=== PATIENT | female | born 1940 | race Caucasian/White ===

== ENCOUNTER 2018-05-10 08:59 | Emergency (ER) | payer MEDICARE, OTHER, SELFPAY ==
--- NOTE | 2018-05-10 09:00 | ED.ABDPAIN ---
HPI - Abdominal Pain General Chief Complaint: Abdominal Pain Stated Complaint: 'DIVERTICULITIS' Time Seen by Provider: 05/10/18 09:00 Source: patient Mode of arrival: ambulatory Limitations: no limitations History of Present Illness HPI narrative: 77-year-old female with a history of diverticulitis and pancreatitis approximately 14 months ago here for evaluation of left-sided abdominal pain and diarrhea that started last evening. She states this started after her evening dinner. Has been constant since then. Has had multiple episodes of diarrhea. No vomiting. She states it feels very similar to her prior diverticulitis episode. Has not tried anything for it. Has an appointment scheduled with her primary doctor tomorrow for routine follow-up. Also was scheduled for a colonoscopy next week. Related Data Home Medications Medication Instructions Recorded Confirmed levothyroxine [Synthroid] 75 mcg PO SUTUTHSA #0 06/21/13 05/10/18 losartan [Cozaar] 100 mg PO DAILY #0 06/21/13 05/10/18 simvastatin 20 mg PO HS #0 06/21/13 05/10/18 aspirin 81 mg PO HS #0 09/04/17 05/10/18 felodipine 5 mg PO QDAY #0 09/04/17 05/10/18 levothyroxine [Synthroid] 0.05 mg PO MOWEFR #0 09/04/17 05/10/18 multivitamin [Multiple Vitamins] 1 tab PO QDAY #0 09/04/17 05/10/18 vitamin B complex [B 1 tab PO QDAY #0 09/04/17 05/10/18 Complex-Vitamin B12] Calcium 300mg + D3 1 tab PO DAILY 05/10/18 05/10/18 ascorbic acid (vitamin C) [Vitamin 1 tab PO DAILY 05/10/18 05/10/18 C With Lilibeth Hips] omega-3 fatty acids-fish oil [Fish 1 cap PO DAILY 05/10/18 05/10/18 Oil] Previous Rx's Medication Instructions Recorded letrozole [Femara] 2.5 mg PO QDAY #30 tab 10/16/17 amoxicillin-pot clavulanate 1 tab PO BID 10 Days #20 tab 05/10/18 Allergies Allergy/AdvReac Type Severity Reaction Status Date / Time No Known Allergies Allergy Uncoded 02/10/18 11:53 Review of Systems Constitutional Reports chills, Denies fatigue, Denies fever(s), Denies headache(s) and Denies lethargy ENT Ears, Nose, Mouth, and Throat: Denies vertigo, Denies dizziness and Denies headache(s) Cardiovascular Denies chest pain, Denies palpitations and Denies dyspnea Respiratory Denies cough and Denies dyspnea Gastrointestinal Gastrointestinal: Reports abdominal pain, Denies melena, Denies hematochezia, Reports diarrhea, Denies nausea and Denies vomiting Genitourinary Denies dysuria and Denies flank pain Musculoskeletal Denies myalgias and Denies arthralgias Integumentary/Breasts Denies rash and Denies wounds Neurologic Denies vertigo, Denies dizziness and Denies headache(s) Endocrine Denies fatigue and Denies palpitations Hematologic/Lymphatic Denies easy bleeding and Denies easy bruising Allergic/Immunologic Denies urticaria Exam Initial Vital Signs Initial Vital Signs: Vital Signs Temperature 97.3 F L 05/10/18 09:09 Pulse Rate 72 05/10/18 09:09 Respiratory Rate 18 05/10/18 09:09 Blood Pressure 136/73 H 05/10/18 09:09 Pulse Oximetry 99 05/10/18 09:09 Const General: cooperative, healthy appearing, comfortable, well developed, well groomed and No acute distress Nutritional Appearance: average body habitus Orientation: alert, awake and oriented x3 [facility] Head: normal to inspection, normocephalic and atraumatic Resp Effort & Inspection: normal respiratory effort GI Inspection: non-distended Palpation: soft, No firm and tender (Left side abdomen) Back/Spine/Pelvis Back: No CVA tenderness Skin Lesions: no lesions Rashes: no rashes Neuro General: alert, awake and oriented x3 Cognition: normal cognition Speech: speech normal Motor: muscle tone normal throughout Sensory Exam: no sensory deficits noted Extrem General: normal to inspection and capillary refill normal Psych Appearance: grossly normal and well kempt Course Orders Ordered: ED Orders 05/10/18 09:32 Urinalysis and Microscopic Stat 05/10/18 09:45 Complete Blood Count AUTO DIFF Stat Comprehensive Metabolic Panel Stat Lactate (Lactic Acid) Stat Lipase Stat Vital Signs - 8 hr 05/10/18 09:09 05/10/18 11:08 Temperature 97.3 F L Pulse Rate 72 86 Respiratory Rate 18 17 Blood Pressure 136/73 H Blood Pressure [Left Arm] 115/65 Pulse Oximetry 99 95 MDM - Abdominal Pain Medical Records Attestation: I reviewed the patient's medical records. Lab Data Attestation: I reviewed the patient's lab results. Result diagrams: 05/10/18 09:45 05/10/18 09:45 Lab Results 05/10/18 05/10/18 05/10/18 Range/Units 09:32 09:45 09:45 WBC 10.9 (4.5-11.0) X10^3/uL RBC 4.29 (4.0-5.2) X10^6/uL Hgb 13.3 (12.0-16.0) g/dL Hct 39.3 (36-46) % MCV 91.7 (80-100) fL MCH 31.0 (26-34) PG MCHC 33.8 (30-36) % RDW 13.6 (11.6-14.8) % Plt Count 183 (150-400) X10^3/uL Neut % (Auto) 84.0 H (50-75) % Lymph % (Auto) 7.9 L (25-40) % [place] % (Auto) 7.3 (3-14) % Eos % (Auto) 0.4 L (2-4) % Baso % (Auto) 0.4 (0-2) % Neut # (Auto) 9200 H (8082-8077) /uL Sodium 142 (137-145) mmol/L Potassium 3.8 (3.4-5.1) mmol/L Chloride 106 (98-107) mmol/L Carbon Dioxide 23 (22-32) mmol/L BUN 24 H (7-17) mg/dL Creatinine 0.80 (0.52-1.04) mg/dL Estimated GFR > 60.0 (>60) mL/min BUN/Creatinine Ratio 30.0 H (6-22) Glucose 102 (80-110) mg/dL Lactate (0.7-2.1) mmol/L Calcium 10.2 (8.4-10.2) mg/dL Total Bilirubin 0.7 (0.2-1.3) mg/dL AST 33 (14-36) IU/L ALT 28 (9-52) IU/L Alkaline Phosphatase 84 (38-126) U/L Total Protein 8.1 (6.3-8.2) g/dL Albumin 4.5 (3.5-5.0) g/dL Globulin 3.6 (1.7-4.1) g/dL Albumin/Globulin Ratio 1.3 (1.0-2.8) Lipase 86 (23-300) U/L Urine Color Yellow Urine Appearance Clear Urine pH 5.5 (4.5-8.0) Ur Specific [place] 1.025 (1.000-1.035) Urine Protein Negative (Negative) Urine Glucose (UA) Negative (Normal) g/dL Urine Ketones Negative (NEGATIVE) Urine Occult Blood Negative (Negative) Urine Nitrate Negative (Negative) Urine Bilirubin Negative (NEGATIVE) Urine Urobilinogen 0.2 (0.2) E.U./dL Ur Leukocyte Esterase Negative (NEGATIVE) Urine RBC None seen (0-5/HPF) Urine WBC None seen (0-5/HPF) Ur Squamous Epith Cells 0-1 /hpf Calcium Oxalate Crystal Few H (None) Urine Bacteria None seen (None) Urine Mucus 1+ H (Negative) Ur Culture Indicated? Cult not indicated Micro UA Comment Not Reportable 05/10/18 Range/Units 09:45 WBC (4.5-11.0) X10^3/uL RBC (4.0-5.2) X10^6/uL Hgb (12.0-16.0) g/dL Hct (36-46) % MCV (80-100) fL MCH (26-34) PG MCHC (30-36) % RDW (11.6-14.8) % Plt Count (150-400) X10^3/uL Neut % (Auto) (50-75) % Lymph % (Auto) (25-40) % [place] % (Auto) (3-14) % Eos % (Auto) (2-4) % Baso % (Auto) (0-2) % Neut # (Auto) (5853-2528) /uL Sodium (137-145) mmol/L Potassium (3.4-5.1) mmol/L Chloride (98-107) mmol/L Carbon Dioxide (22-32) mmol/L BUN (7-17) mg/dL Creatinine (0.52-1.04) mg/dL Estimated GFR (>60) mL/min BUN/Creatinine Ratio (6-22) Glucose (80-110) mg/dL Lactate 0.8 (0.7-2.1) mmol/L Calcium (8.4-10.2) mg/dL Total Bilirubin (0.2-1.3) mg/dL AST (14-36) IU/L ALT (9-52) IU/L Alkaline Phosphatase (38-126) U/L Total Protein (6.3-8.2) g/dL Albumin (3.5-5.0) g/dL Globulin (1.7-4.1) g/dL Albumin/Globulin Ratio (1.0-2.8) Lipase (23-300) U/L Urine Color Urine Appearance Urine pH (4.5-8.0) Ur Specific [place] (1.000-1.035) Urine Protein (Negative) Urine Glucose (UA) (Normal) g/dL Urine Ketones (NEGATIVE) Urine Occult Blood (Negative) Urine Nitrate (Negative) Urine Bilirubin (NEGATIVE) Urine Urobilinogen (0.2) E.U./dL Ur Leukocyte Esterase (NEGATIVE) Urine RBC (0-5/HPF) Urine WBC (0-5/HPF) Ur Squamous Epith Cells Calcium Oxalate Crystal (None) Urine Bacteria (None) Urine Mucus (Negative) Ur Culture Indicated? Micro UA Comment MDM Narrative Medical decision making narrative: Patient has a benign abdominal exam. Lactate unremarkable. Does not have an elevated white blood cell count. Did have a couple episodes of diarrhea here in the emergency department. Has been nonbloody. Is tolerating oral intake. Had a long discussion with the patient and her regarding her symptoms. She states that it feels just like her prior diagnosis of diverticulitis. Will hold on a CT scan for now and treat with Augmentin. She states she could not tolerate the Cipro and Flagyl. She has been on Augmentin in the past which seems to have helped her symptoms. We did discuss that without the CT scan we could be missing a potentially worse conditions such as an abscess. She expressed understanding with this we will still hold on a CT scan. She was given return precautions. She will call her surgeon to see about the colonoscopy that she has scheduled for next week. She expressed understanding and agreement with plan Discharge Plan Departure Patient Disposition: Home, Self-Care Clinical Impression: Diverticulitis Instructions: Diverticulitis Activity Restrictions/Additional Instructions: Take all of the medication as directed. Eat a bland diet like we discussed. Call your surgeon to discuss the colonoscopy that you have scheduled for next week. Call your primary care doctor for a follow-up. Return to the emergency department for any new symptoms, worsening pain, fevers, inability to tolerate oral intake or any other new or concerning symptoms Prescriptions: New amoxicillin-pot clavulanate 500-125 mg tablet 1 tab PO BID 10 Days Qty: 20 RF: 0 No Action losartan [Cozaar] 100 MG tablet 100 mg PO DAILY Qty: 0 RF: 0 levothyroxine [Synthroid] 75 MCG tablet 75 mcg PO SUTUTHSA Qty: 0 RF: 0 simvastatin 20 MG tablet 20 mg PO HS Qty: 0 RF: 0 levothyroxine [Synthroid] 50 MCG tablet 0.05 mg PO MOWEFR Qty: 0 RF: 0 multivitamin [Multiple Vitamins] 1 EACH tablet 1 tab PO QDAY Qty: 0 RF: 0 felodipine 5 MG tablet extended release 24 hr 5 mg PO QDAY Qty: 0 RF: 0 vitamin B complex [B Complex-Vitamin B12] 1 EACH tablet 1 tab PO QDAY Qty: 0 RF: 0 aspirin 81 MG tablet,delayed release (DR/EC) 81 mg PO HS Qty: 0 RF: 0 letrozole [Femara] 2.5 MG tablet 2.5 mg PO QDAY Qty: 30 RF: 4 ascorbic acid (vitamin C) [Vitamin C With Lilibeth Hips] 1,000 mg Tablet Extended Release 1 tab PO DAILY RF: 0 omega-3 fatty acids-fish oil [Fish Oil] 360-1,200 mg Capsule 1 cap PO DAILY RF: 0 Calcium 300mg + D3 1 tab PO DAILY RF: 0
[2018-05-10 09:09] VITALS: BP 136/73; PULSE 72; RESP 18; TEMP 36.3; O2SAT 99; BMI 30.3
[2018-05-10 09:53] LABS: Add Manual Diff / Slide Review NO; Basophils Percent Auto 0.4 % (0-2); Eosinophils Percent Auto 0.4 % (2-4); Hematocrit 39.3 % (36-46); Hemoglobin 13.3 g/dL (12.0-16.0); Lymphocytes Percent Auto 7.9 % (25-40); Mean Corpuscular HGB Conc 33.8 % (30-36); Mean Corpuscular Volume 91.7 fL (80-100); Monocytes Percent Auto 7.3 % (3-14); Neutrophils Absolute Auto 9200 /uL (3000-5900); Platelet Count 183 X10^3/uL (150-400); Red Blood Cell Count 4.29 X10^6/uL (4.0-5.2); Red Cell Distribution Width 13.6 % (11.6-14.8); White Blood Cell Count 10.9 X10^3/uL (4.5-11.0)
[2018-05-10 10:14] LABS: Alanine Aminotransferase 28 IU/L (9-52); Albumin 4.5 g/dL (3.5-5.0); Albumin Globulin Ratio 1.3 (1.0-2.8); Alkaline Phosphatase 84 U/L (38-126); Aspartate Aminotransferase 33 IU/L (14-36); Bilirubin Total 0.7 mg/dL (0.2-1.3); Blood Urea Nitrogen 24 mg/dL (7-17); Calcium 10.2 mg/dL (8.4-10.2); Carbon Dioxide 23 mmol/L (22-32); Chloride 106 mmol/L (98-107); Estimated Glomerular Filt Rate > 60.0 mL/min (>60); Globulin 3.6 g/dL (1.7-4.1); Glucose 102 mg/dL (80-110); Lipase 86 U/L (23-300); Potassium 3.8 mmol/L (3.4-5.1); Sodium 142 mmol/L (137-145); Total Protein 8.1 g/dL (6.3-8.2)
[2018-05-10 10:15] LABS: HEMOLYSIS 56 (0-50); Lactate (Lactic Acid) 0.8 mmol/L (0.7-2.1)
[2018-05-10 10:25] LABS: Bacteria Urine None Seen; RBC Urine None Seen (0-5/HPF); WBC Urine None Seen (0-5/HPF)
[2018-05-10 10:28] LABS: Appearance Urine UA CLEAR; Bilirubin Urine UA NEGATIVE (NEGATIVE); Color Urine UA YELLOW; Glucose Urine UA NEGATIVE (Normal); Ketones Urine UA NEGATIVE (NEGATIVE); Leukocyte Esterase Urine UA NEGATIVE (NEGATIVE); Nitrite Urine UA Negative (Negative); Occult Blood Urine UA NEGATIVE (Negative); Protein Urine UA NEGATIVE (Negative); Specific Gravity Urine UA 1.025 (1.000-1.035); Urobilinogen Urine UA 0.2 E.U./dL (0.2); pH Urine UA 5.5 (4.5-8.0)
[2018-05-10 10:40] LABS: Calcium Oxalate Crystals Urine Few; Culture Indicated Urine Cult Not Indicated; Mucus Urine 1+ (Negative); Squamous Epithelial Cell Urine 0-1 /HPF
[2018-05-10 11:08] VITALS: BP 115/65; PULSE 86; RESP 17; O2SAT 95
== END 2018-05-10 11:43 | disposition home or self-care (01) ==
PROVIDERS: Emergency Provider Emergency Medicine; Family Provider Family Medicine; PCP Family Medicine
DX: K57.92 Diverticulitis of intestine, part unspecified, without perforation or abscess without bleeding (principal)
CPT/HCPCS: 36591; 80053; 81001; 83605; 83690; 85025; 99283

== ENCOUNTER → 2018-05-18 15:38 | Outpatient (CLI) | payer MEDICARE, OTHER, SELFPAY ==
--- NOTE | 2018-05-18 15:42 | DI.RAD.S_ITS ---
PROCEDURE: XR FOOT LT MIN 3V INDICATIONS: LEFT FOOT PAIN TECHNIQUE: 3 views of the foot were acquired. COMPARISON: [facility], , FOOT 3V LEFT, 01/03/2009, 11:13. FINDINGS: Bones: Metatarsus adductus and hallux valgus. No fractures or dislocations. No suspicious bony lesions. There is moderate first metatarsophalangeal joint degeneration. Calcaneal spurring. [place] adjacent to the medial malleolus is likely sequelae of old injury. Soft tissues: No tibiotalar joint effusion. Achilles tendon appears normal. IMPRESSION: 1. 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 2. Bunion. 3. Calcaneal spurring. Dictated by: Daren Hernandez M.D. on 05/18/2018 at 17:44 Approved by: Daren Hernandez M.D. on 05/18/2018 at 17:47
== END ==
PROVIDERS: Family Provider Family Medicine; PCP Family Medicine; Visit Provider Family Medicine
DX: M18.12 Unilateral primary osteoarthritis of first carpometacarpal joint, left hand (principal); M21.612 Bunion of left foot; M77.32 Calcaneal spur, left foot; M79.672 Pain in left foot
CPT/HCPCS: 73630

== ENCOUNTER → 2018-06-30 17:09 | Outpatient (CLI) | payer MEDICARE, OTHER, SELFPAY ==
--- NOTE | 2018-06-30 17:11 | DI.RAD.S_ITS ---
PROCEDURE: XR HAND RT MIN 3V INDICATIONS: RIGHT HAND PAIN TECHNIQUE: 3 views of the hand(s) acquired. COMPARISON: [facility], , HAND 3V RIGHT, 11/23/2008, 10:52. FINDINGS: Bones: No fractures or dislocations. Carpal bones are normally aligned. No suspicious bony lesions. Degenerative changes in multiple interphalangeal joints. Subchondral cystic area in the distal right radius is stable and benign. Soft tissues: No suspicious soft tissue calcifications. IMPRESSION: No fractures. Degenerative changes in multiple interphalangeal joints. Dictated by: Anthony Lyons M.D. on 07/01/2018 at 9:29 Approved by: Anthony Lyons M.D. on 07/01/2018 at 9:32
--- NOTE | 2018-09-20 10:59 | MSW.VISIT ---
CARD PLACER Visit note - Data of Consult Primary Care Provider: Danita Armstrong MD - Consult Narrative Reason for consult: Counseling for adjustment to survivorship and marital dynamics. Narrative: Patient is a 78-year old female here to initiate counseling to address communication and relationship difficulties that she has been experiencing with her spouse. She states that after completing her active cancer treatment, that she finds herself feeling more frustrated and impatient with her , although many of her frustrations have been long-standing. CARD PLACER provided teaching re: cancer survivorship, the continued effects of anxiety/depression, and validation of the normal experience of cancer survivors to feel different in adjusting to their new normal, especially when is comes to communication and relationship dynamics with those family, friends and caregivers that have been directly involved throughout treatment. Discussed basic communication skills and tools, such as: paying attention to one's own tone, non-verbal messages, and reactions to disagreements/conflicts/aggravations she experiences in communication with her . Pt's is also 82-year's old, and is very hard of hearing. CARD PLACER shared that older people with hearing loss, without efficient hearing aid devices, can often become more irritable, depressed, and will withdraw from engaging with people in conversation due to not being able to hear them. She states that this may improve, as they had just gone to the [place] and had his hearing aids replaced. He's also described by patient as drinking several alcohol beverages per day, and will often become more belligerent as he becomes more intoxicated. Counseling involved discussing ways that patient can take care of herself when pt is intoxicated and unable to interact rationally or reasonably, including disengaging, being clear and matter of fact in stating her needs/feelings, and not reacting in antagonistic ways that exacerbate the interaction. Offered additional suggestions for processing through her experience of cancer, fears about the future, and ways to remain healthy-physically and emotionally, with self-care. Discussed how resentment can grow in a relationship when one partner has ongoing, unmet expectations of the other partner, and encouraged her to think more about this: what is she willing to accept, what's within her control and not in her control, focus on changing her own responses and emotional reactions to begin with-as opposed to always feeling disapointed in his reponses and reactions to her that make her feel so frustrated. She expressed that they are both elderly, and that she has no intention of her spouse, however wants improvement for their relationship. They have grown children who are very supportive, however patient does not want to burden (her daughter) with ongoing complaints about their father. CC: Danita Armstrong MD Patient reports pain?: No - Code Status Resuscitation Status: Full Code - Social History Smoking Status: Never smoker alcohol intake: never (On special occasions, sometimes.) substance use type: does not use housing: house household members: spouse service: Yes (Spouse is retired [employer] [employer] current occupational status: retired education level: high school - Psychological Status Stressors: Interpersonal, Health Depression-related: Depressed mood: Present, Loss of interest: Absent, Fatigue: Present, Concentration/focus: Absent, Insomnia: Absent, Hypersomnia: Absent, Appetite changes: Absent, Feel guilt/worthlesness: Absent, Suicidal ideation: Absent, Psychomotor agitation: Absent, Psychomotor retardation: Absent - Mental Status Exam Orientation:: Time, Place and Person Appearance:: Well-groomed Speech:: Normal rate/volume/ari Movement:: Agitated Mood:: Anxious Affect:: Congruent with mood, Sad Thought Process:: Normal Thought Content:: Normal Suicide Risk Degree: Low Home Medications: Home Medications Medication Instructions Recorded Confirmed Type levothyroxine [Synthroid] 75 mcg PO SUTUTHSA #0 06/21/13 09/07/18 History losartan [Cozaar] 100 mg PO DAILY #0 06/21/13 09/07/18 History simvastatin 20 mg PO HS #0 06/21/13 09/07/18 History aspirin 81 mg PO HS #0 09/04/17 09/07/18 History felodipine 5 mg PO QDAY #0 09/04/17 09/07/18 History levothyroxine [Synthroid] 0.05 mg PO MOWEFR #0 09/04/17 09/07/18 History multivitamin [Multiple Vitamins] 1 tab PO QDAY #0 09/04/17 09/07/18 History vitamin B complex [B 1 tab PO QDAY #0 09/04/17 09/07/18 History Complex-Vitamin B12] letrozole [Femara] 2.5 mg PO QDAY #30 tab 10/16/17 09/07/18 Rx Calcium 300mg + D3 1 tab PO DAILY 05/10/18 09/07/18 History ascorbic acid (vitamin C) [Vitamin 1 tab PO DAILY 05/10/18 09/07/18 History C With Lilibeth Hips] omega-3 fatty acids-fish oil [Fish 1,200 mg PO DAILY 05/10/18 09/07/18 History Oil] meloxicam 7.5 mg PO PRN PRN 09/07/18 09/07/18 History trazodone 100 mg PO BEDTIME 09/07/18 09/07/18 History Allergies/Adverse Reactions: Allergies Allergy/AdvReac Type Severity Reaction Status Date / Time metronidazole [From Flagyl] Allergy Severe Diarrhea Verified 07/08/18 08:02
== END ==
PROVIDERS: Family Provider Family Medicine; PCP Family Medicine; Visit Provider Family Medicine
DX: M79.641 Pain in right hand (principal); M19.041 Primary osteoarthritis, right hand
CPT/HCPCS: 73130

== ENCOUNTER 2018-07-08 07:40 | Day surgery (SDC) | payer MEDICARE, OTHER, SELFPAY ==
[2018-07-08] VITALS (7 sets, daily range): BP systolic 99–117; BP diastolic 56–70; PULSE 62–83; RESP 7–16; TEMP 35.9–36.5; O2SAT 94–97; BMI 29.2
[2018-07-08] MEDS: SODIUM CHLORIDE 0.9% 1,000 ML 21 ML IV (08:53)
--- NOTE | 2018-07-08 09:30 | SUR.OPER ---
DROWSY BUT RESPONSIVE TO TACTILE STIMULATION
[2018-07-08] MEDS: MIDAZOLAM 5 MG/5 ML VIAL IV (09:32)
[2018-07-08] MEDS: fentaNYL 250 MCG/5 ML INJ IV (09:33)
--- NOTE | 2018-07-08 09:48 | SUR.OPER ---
MULTIPLE POSITIONING FROM LEFT TO RIGHT SIDES
--- NOTE | 2018-07-08 09:57 | PM.HP.1 ---
History of Present Illness Date Patient Seen: 07/08/18 Time Patient Seen: 09:58 Chief complaint: [id number] Narrative: Very pleasant 77-year-old lady who is well known to me from prior visits. She has had multiple episodes of diverticulitis and was seen in our emergency room in May for an acute episode. She presents today for colonoscopy. She denies any abdominal pain currently. She just returned from a 2 week cruise and reports it went fairly well without much trouble with her bowels. Patient History Family & Social History Family History: Reviewed 07/08/18 by Ayana Amezcua MD Social History: household members spouse Meds Home Medications Medication Instructions Recorded Confirmed Type levothyroxine [Synthroid] 75 mcg PO SUTUTHSA #0 06/21/13 07/08/18 History losartan [Cozaar] 100 mg PO DAILY #0 06/21/13 07/08/18 History simvastatin 20 mg PO HS #0 06/21/13 07/08/18 History aspirin 81 mg PO HS #0 09/04/17 07/08/18 History felodipine 5 mg PO QDAY #0 09/04/17 07/08/18 History levothyroxine [Synthroid] 0.05 mg PO MOWEFR #0 09/04/17 07/08/18 History multivitamin [Multiple Vitamins] 1 tab PO QDAY #0 09/04/17 07/08/18 History vitamin B complex [B 1 tab PO QDAY #0 09/04/17 07/08/18 History Complex-Vitamin B12] letrozole [Femara] 2.5 mg PO QDAY #30 tab 10/16/17 07/08/18 Rx Calcium 300mg + D3 1 tab PO DAILY 05/10/18 07/08/18 History ascorbic acid (vitamin C) [Vitamin 1 tab PO DAILY 05/10/18 07/08/18 History C With Lilibeth Hips] omega-3 fatty acids-fish oil [Fish 1,200 mg PO DAILY 05/10/18 07/08/18 History Oil] Allergies Allergy/AdvReac Type Severity Reaction Status Date / Time metronidazole [From Flagyl] Allergy Severe Diarrhea Verified 07/08/18 08:02 Review of Systems Review of Systems All systems reviewed & are unremarkable except as noted in HPI and below Exam Vital Signs (past 8 hours): - 07/08/18 08:22 Temperature 97.1 F L Pulse Rate 70 Respiratory Rate 15 Blood Pressure 108/69 Pulse Oximetry 94 Oxygen Delivery Method Room Air Narrative Exam Narrative: Very pleasant lady who appears younger than her stated age HEENT: Normocephalic and atraumatic, pupils equal round reactive to light accommodation with anicteric sclera Lungs: Clear bilaterally Heart: Regular rate and rhythm Abdomen: Soft, well-healed midline incision, nontender to palpation, active bowel sounds Extremities: Warm and well perfused without edema Assessment & Plan Plan: Assessment/Plan Narrative: Pleasant 77-year-old lady with a history of multiple episodes diverticulitis but all successfully treated in the outpatient setting. We discussed the risks and benefits of colonoscopy and the patient expressed a desire to have the procedure..
--- NOTE | 2018-07-08 09:59 | PM.OP.1 ---
Operative Date/Time/Diagnoses Date of procedure: 07/08/18 Time of procedure: 10:00 Pre-op diagnosis: History of diverticulitis Screening Post-op diagnosis: same Procedure & Clinicians Procedure: Colonoscopy to the cecum Same procedure as scheduled: Yes Indications: More than 5 years since last colonoscopy Surgeon: Ayana Amezcua Click Yes if Unassisted: Yes Anesthesia Type: Sedation (Versed 8 mg; fentanyl 175 mcg) Operative Notes Findings: 1. Adequate prep 2. Severe and extensive diverticulosis with multiple false passages and large and small tics. The area most severely affected extends from 30-60 cm. No evidence of acute inflammation today 3. No polyps or mass lesions 4. No AV malformations 5. Essentially normal mucosa except in the segment referenced above 6. Grade 2 internal hemorrhoids Closure Type: not applicable Specimen(s): none sent Blood products transfused: none Procedure in detail: After obtaining informed consent, the patient was brought to the GI suite and placed in the left lateral decubitus position on the examination table. After placement of appropriate monitors, the patient was given incremental doses of Versed and Fentanyl until an appropriate level of sedation was achieved. A time out was held per SCOAP protocol. A digital rectal examination was performed and did not reveal any masses or obstructing lesions. The colonoscope was gently passed into the patient's anus and the entire colon navigated to the level of the cecum with significant difficulty. The patient has severe diverticulosis and a fibrotic colon from about 30 to about 60 cm. Multiple changes of position or required to navigate this segment. Once we repassed this area, the rest of the colon was relatively normal and relatively spared of diverticulosis. Once in the cecum, the scope was withdrawn being sure to go before and beyond all mucosal folds and prominences and get an excellent examination. The findings are noted above. At the level of the rectal vault, the scope was retroflexed and the internal anal canal was examined. The scope was straightened and air aspirated from the colon. The instrument was removed from the patient's body and the procedure was concluded. The patient was allowed to awaken from sedation without difficulty and taken to the post-anesthesia care unit in good condition. Total sedation time 35 min Total withdrawal time 9 min Complications: none Condition: stable Disposition: PACU Plan for aftercare: 1. Discharge to home 2. I do not recommend any additional screening studies.
== END 2018-07-08 10:45 | disposition home or self-care (01) ==
PROVIDERS: PCP Family Medicine; Visit Provider Surgery
PROC: 0DJD8ZZ Inspection of Lower Intestinal Tract, Via Natural or Artificial Opening Endoscopic (ICD-10-PCS; CPT 45378; principal; 2018-07-08 08:45)
DX: K57.30 Diverticulosis of large intestine without perforation or abscess without bleeding (principal); Z87.19 Personal history of other diseases of the digestive system; K64.1 Second degree hemorrhoids
CPT/HCPCS: 45378; 99152; 99153; J2250; J3010

== ENCOUNTER → 2018-07-12 09:49 | Outpatient (CLI) | payer MEDICARE, OTHER, SELFPAY ==
[2018-07-12 10:17] LABS: Add Manual Diff / Slide Review NO; Basophils Percent Auto 0.8 % (0-2); Eosinophils Percent Auto 0.8 % (2-4); Hematocrit 39.2 % (36-46); Hemoglobin 13.3 g/dL (12.0-16.0); Lymphocytes Percent Auto 15.2 % (25-40); Mean Corpuscular HGB Conc 33.9 % (30-36); Mean Corpuscular Hemoglobin 30.9 PG (26-34); Mean Corpuscular Volume 91.2 fL (80-100); Monocytes Percent Auto 10.2 % (3-14); Neutrophils Absolute Auto 5800 /uL (3000-5900); Platelet Count 199 X10^3/uL (150-400); Red Blood Cell Count 4.29 X10^6/uL (4.0-5.2); Red Cell Distribution Width 13.8 % (11.6-14.8)
[2018-07-12 10:28] LABS: Alanine Aminotransferase 28 IU/L (9-52); Albumin 4.5 g/dL (3.5-5.0); Albumin Globulin Ratio 1.4 (1.0-2.8); Alkaline Phosphatase 69 U/L (38-126); Aspartate Aminotransferase 27 IU/L (14-36); BUN Creatinine Ratio 27.8 (6-22); Bilirubin Total 0.8 mg/dL (0.2-1.3); Blood Urea Nitrogen 25 mg/dL (7-17); Calcium 10.2 mg/dL (8.4-10.2); Carbon Dioxide 27 mmol/L (22-32); Chloride 104 mmol/L (98-107); Estimated Glomerular Filt Rate > 60.0 mL/min (>60); Globulin 3.2 g/dL (1.7-4.1); Glucose 100 mg/dL (80-110); HEMOLYSIS < 15 (0-50); Potassium 4.4 mmol/L (3.4-5.1); Sodium 143 mmol/L (137-145); Total Protein 7.7 g/dL (6.3-8.2)
== END ==
PROVIDERS: PCP Family Medicine; Visit Provider Nurse Practitioner Gerontology
DX: D05.11 Intraductal carcinoma in situ of right breast (principal)
CPT/HCPCS: 36415; 80053; 85025

== ENCOUNTER → 2018-07-14 11:42 | Outpatient (CLI) | payer MEDICARE, OTHER, SELFPAY ==
--- NOTE | 2018-07-14 | DI.MRI.S_ITS ---
PROCEDURE: MR KNEE RT WO CON INDICATIONS: PAIN IN RIGHT KNEE TECHNIQUE: Noncontrast sagittal PD fast spin echo and T2 fast spin echo with fat saturation, sagittal 3-D FLASH with fat saturation; coronal T1 spin echo and PD fast spin echo with fat saturation, and axial PD fast spin echo with fat saturation through the knee. COMPARISON: [facility], CR, XR KNEE ARTHRITIC SERIES BI, 05/07/2018, 15:45. FINDINGS: Image quality: Excellent. Menisci: Medial extrusion of the medial meniscus. Amorphous high signal intensity within the anterior and posterior horns medial meniscus is present demonstrate superior and inferior articular surface extension, indicating degenerative tearing. Radial tearing of the free edge of the lateral meniscal body and posterior horn. Amorphous high signal intensity within the anterior horn lateral meniscus demonstrating superior and inferior articular surface extension, indicating degenerative tearing. Cruciate ligaments: Posterior cruciate ligament demonstrates moderate internal T2 signal lesion, consistent with partial thickness tearing or full-thickness tearing of the anterior cruciate ligament is present. Medial structures: The medial collateral ligament appears intact but demonstrates mild surrounding T2 signal elevation.. Visualized portions of the pes anserinus tendons appear normal. Moderate medial bursal fluid. Lateral structures: The lateral collateral ligament demonstrates a small focus of T2 signal elevation at its femoral insertion site. The long and short heads of the biceps femoris tendon appear intact. The popliteus tendon appears normal. Iliotibial band appears normal. Anterior structures: The quadriceps and patellar tendons appear intact. Patellar alignment is normal. No femoral trochlear dysplasia or ventral trochlear prominence. No edema in the infrapatellar fat pad. Bones and cartilage: No bone marrow contusions or fractures. Multiple intraosseous ganglia within the central tibial plateau. Mild ill-defined T2 signal elevation within the weightbearing aspects of the medial femoral condyle and medial tibial plateau. Severe tricompartmental periarticular osteophyte formation. Mild articular cartilage loss overlies the lateral patellar facet. Severe articular cartilage loss overlies the weightbearing aspects of the medial femoral condyle and medial tibial plateau. Moderate articular cartilage loss overlies the weightbearing aspects of the lateral femoral condyle lateral tibial plateau. Joint space: There is a small knee joint effusion and a small Gonzales's cyst. Normal appearing synovial plicae are incidentally noted. IMPRESSION: 1. Full-thickness tearing of the anterior crucial ligament. Partial-thickness tearing of the posterior crucial ligament. 2. MCL strain. 3. Partial-thickness lateral collateral ligament tear. 4. Knee joint effusion and Gonzales's cyst. 5. Medial bursitis. 6. Medial and lateral meniscal tearing. Dictated by: Viv Echols M.D. on 07/14/2018 at 13:39 Approved by: Viv Echols M.D. on 07/14/2018 at 13:44
== END ==
PROVIDERS: PCP Family Medicine; Visit Provider Orthopaedic Surgery
DX: M25.561 Pain in right knee (principal); S83.281A Other tear of lateral meniscus, current injury, right knee, initial encounter; S83.241A Other tear of medial meniscus, current injury, right knee, initial encounter; S83.511A Sprain of anterior cruciate ligament of right knee, initial encounter; S83.521A Sprain of posterior cruciate ligament of right knee, initial encounter; S83.411A Sprain of medial collateral ligament of right knee, initial encounter; S83.421A Sprain of lateral collateral ligament of right knee, initial encounter; M71.21 Synovial cyst of popliteal space [Baker], right knee
CPT/HCPCS: 73721

== ENCOUNTER 2018-07-16 11:26 | Oncology outpatient (ONC) | payer MEDICARE, OTHER, SELFPAY ==
[2018-07-16 12:04] VITALS: BP 136/75; PULSE 72; RESP 16; TEMP 36.1; O2SAT 96
--- NOTE | 2018-07-16 12:16 | P.PNONC_ITS ---
PN -Subjective Interval history: THE INTERIM EVENTS Patient was started on adjuvant letrozole in December of 2017. Patient overall has tolerated the anastrozole very well. He denies any hot flashes, denies any night sweats, denies any mood swing. He denies any shortness of breath or chest pain. Denies any abdominal pain diarrhea or constipation. Denies any joint pain at this moment. ONCOLOGICAL HISTORY Screening mammography on July 08 2017: calcification at 1 o'clock and a mass at 7 o'clock posterior depth. Additional imaging on Jul 22, 2017: 7 mm oval mass in the right breast at 8 o' clock and clustered heterogeneous calcifications at 1 o'clock anterior depth. Ultrasound on Jul 22, 2017: showed the 7 mm cyst was benign and the clustered calcifications at 1 o'clock required biopsy. Ultrasound guided core biopsies on August 04 2017 showed a high grade DCIS, solid, and cribriform pattern in 3 cores with a greatest length of 11 mm. ER + , 95% MRI on August 24, 2017 showed no additional lesions or adenopathy and was consistent with prior biopsy. Pathologic stage:09/23/17: Primary tumor: pTis(DCIS), Regional lymph nodes: pNX She has completed radiation and now agrees to start letrozole. She has a history of VANDANA BSO followed by 15 years of hormone replacement therapy - Additional ROS All systems PM: reviewed and no additional remarkable complaints except as stated Home Medications and Allergies Home Medications Medication Instructions Recorded Confirmed Type levothyroxine [Synthroid] 75 mcg PO SUTUTHSA #0 06/21/13 07/08/18 History losartan [Cozaar] 100 mg PO DAILY #0 06/21/13 07/08/18 History simvastatin 20 mg PO HS #0 06/21/13 07/08/18 History aspirin 81 mg PO HS #0 09/04/17 07/08/18 History felodipine 5 mg PO QDAY #0 09/04/17 07/08/18 History levothyroxine [Synthroid] 0.05 mg PO MOWEFR #0 09/04/17 07/08/18 History multivitamin [Multiple Vitamins] 1 tab PO QDAY #0 09/04/17 07/08/18 History vitamin B complex [B 1 tab PO QDAY #0 09/04/17 07/08/18 History Complex-Vitamin B12] letrozole [Femara] 2.5 mg PO QDAY #30 tab 10/16/17 07/08/18 Rx Calcium 300mg + D3 1 tab PO DAILY 05/10/18 07/08/18 History ascorbic acid (vitamin C) [Vitamin 1 tab PO DAILY 05/10/18 07/08/18 History C With Lilibeth Hips] omega-3 fatty acids-fish oil [Fish 1,200 mg PO DAILY 05/10/18 07/08/18 History Oil] Allergies Allergy/AdvReac Type Severity Reaction Status Date / Time metronidazole [From Flagyl] Allergy Severe Diarrhea Verified 07/08/18 08:02 Exam Vital signs: Temperature 97.0?, heart rate 72, respiratory rate 16, blood pressure 136/75, saturation 96% room air, weight 143.1 lb. ECOG 1. - Constitutional positive no acute distress, positive cooperative - Routine HEENT Exam Head: Present: normocephalic, atraumatic Eye: Present: EOMI, PERRL, normal accommodation. Absent: conjunctival icterus ENT: Present: mucous membranes moist - Routine Neck Exam Present: supple. Absent: lymphadenopathy, thyromegaly - Routine Respiratory Exam Present: Clear to auscultation bilaterally. Absent: wheezes - Routine Cardiovascular Exam Present: RRR, S1, S2. Absent: murmur, gallop, rubs - Routine Abdominal Exam Present: soft, normoactive bowel sounds. Absent: tenderness, distended, organomegaly, mass, hernia - Routine Extremities Exam Present: edema - Routine Neurological Exam Present: alert, oriented X3, CN II-XII intact, normal speech. Absent: sensory deficit, motor deficit - Routine Psychiatric Exam Present: normal affect, normal thought process, cooperative, good insight, good judgment Results - Labs Reviewed. Assessment and Plan (1) Ductal carcinoma in situ (DCIS) of right breast Current visit: Yes She is now taking letrozole 2.5 mg once a day and has tolerated very well. I will continue the treatment without any changes. I did talk with her about the possible side effects including hot flashes and osteoporosis. I encouraged her also continue to take calcium and vitamin-D [id number]. I especially told her that should be 2 pills once day. (2) Osteopenia Current visit: Yes Status: Chronic I will recheck a DEXA scan in November of 2018. And I will see the patient after the DEXA scan.
== END 2018-07-17 12:00 ==
LOC: ONC 11:28
PROVIDERS: PCP Family Medicine; Visit Provider Internal Medicine Hematology & Oncology
DX: D05.11 Intraductal carcinoma in situ of right breast (principal); M85.80 Other specified disorders of bone density and structure, unspecified site
CPT/HCPCS: 99214

== ENCOUNTER → 2018-07-21 12:29 | Outpatient (CLI) | payer MEDICARE, OTHER, SELFPAY ==
--- NOTE | 2018-07-21 | DI.MG.S_ITS ---
BILATERAL DIGITAL SCREENING MAMMOGRAM 3D/2D WITH CAD POST LUMPECTOMY: 07/21/2018 CLINICAL: Routine screening. Personal history of right breast cancer. Comparison is made to exams dated: 03/04/2018 mammogram, 08/24/2017 breast MRI, 07/08/2017 mammogram, and 07/01/2016 mammogram - [facility]. The tissue of both breasts is heterogeneously dense. This may lower the sensitivity of mammography. Current study was also evaluated with a Computer Aided Detection (CAD) system. There is postsurgical scarring with overlying linear scar markers in the upper right breast. Diffuse upper left breast calcifications appear slightly increased from prior exam. No significant masses, calcifications, or other findings are seen in either breast. IMPRESSION: INCOMPLETE: NEEDS ADDITIONAL IMAGING EVALUATION Diffuse upper left breast calcifications appear slightly increased from prior exam. Additional views with magnification views recommended. This exam was interpreted at Station ID: [id number]. NOTE: For mammograms, a report in lay terms will be sent to the patient. Approximately 15% of breast malignancies will not be visualized mammographically. In the management of a palpable breast mass, a negative mammogram must not discourage biopsy of a clinically suspicious lesion. Electronically Signed By: Pete Chahal M.D. ecl/:07/22/2018 07:16:57 copy to: Ayana Amezcua copy to: ALEX LARA copy to: Junseng. Prabhu ASHTON, [facility] letter sent: Additional Imaging Needed ACR BI-RADS Category 0: Incomplete 3340F
--- NOTE | 2018-07-27 14:21 | PC.NURSE ---
Pt called today stating that on her 07/[address] Pelletier, he indicated he would send an Rx to her pharmacy to refill her Letrozole. Per Escript, they never received any request and she is about to run out. After reviewing his notes, he did state that he wanted her to continue her letrozole at the prescribed dose so I called in a 90 day supply for her. Copy of this note will be given to Dr Pelletier for review.
== END ==
PROVIDERS: PCP Family Medicine; Visit Provider Family Medicine
DX: Z12.31 Encounter for screening mammogram for malignant neoplasm of breast (principal); Z85.3 Personal history of malignant neoplasm of breast
CPT/HCPCS: 77063; 77067

== ENCOUNTER → 2018-08-23 10:28 | Outpatient (CLI) | payer MEDICARE, OTHER, SELFPAY ==
--- NOTE | 2018-08-23 | DI.MG.S_ITS ---
UNILATERAL LEFT DIGITAL DIAGNOSTIC MAMMOGRAM 3D/2D WITH ADDITIONAL VIEWS: 08/23/2018 CLINICAL: Additional evaluation requested from prior study. Personal history of breast cancer. Comparison is made to exams dated: 07/21/2018 mammogram, 03/04/2018 mammogram, 08/24/2017 breast MRI, and 07/08/2017 mammogram - [facility]. The tissue of left breast is heterogeneously dense. This may lower the sensitivity of mammography. There are a diffuse calcifications in the left breast at 1 o'clock posterior depth. These are not significantly changed. No other significant masses or calcifications are seen in the breast. IMPRESSION: PROBABLY BENIGN The diffuse calcifications in the left breast are probably benign. A follow-up mammogram in 6 months is recommended to demonstrate stability. This exam was interpreted at Station ID: [id number]. NOTE: For mammograms, a report in lay terms will be sent to the patient. Approximately 15% of breast malignancies will not be visualized mammographically. In the management of a palpable breast mass, a negative mammogram must not discourage biopsy of a clinically suspicious lesion. Electronically Signed By: Vita Rojas M.D. lk/:08/23/2018 11:05:35 copy to: Ayana Amezcua copy to: ALEX LARA copy to: Junseng. Prabhu ASHTON, [facility] letter sent: Followup Recommended ACR BI-RADS Category 3: Probably benign [id number]
== END ==
PROVIDERS: PCP Family Medicine; Visit Provider Family Medicine
DX: R92.1 Mammographic calcification found on diagnostic imaging of breast (principal); Z85.3 Personal history of malignant neoplasm of breast
CPT/HCPCS: 77065; G0279

== ENCOUNTER 2018-11-16 11:26 | Day surgery (SDC) | payer MEDICARE, OTHER, SELFPAY ==
[2018-11-04 09:00] VITALS: BMI 29.5
[2018-11-16] VITALS (12 sets, daily range): BP systolic 116–158; BP diastolic 52–85; PULSE 22–74; RESP 11–95; TEMP 36.1–37.2; O2SAT 92–98; BMI 29.5
--- NOTE | 2018-11-16 06:00 | DI.RAD.S_ITS ---
PROCEDURE: XR KNEE RT 1TO2V INDICATIONS: prosthesis placement TECHNIQUE: 2 view(s) of the knee acquired. COMPARISON: [facility], , KNEE 3V RIGHT, 08/19/2014, 11:33. FINDINGS: Bones: Patient is status post knee joint arthroplasty. Hardware components are in expected positions. Visualized bony structures are intact. Soft tissues: Overlying postoperative changes are noted. IMPRESSION: Normal alignment after right total knee arthroplasty with a surgical drain overlying the operative bed. Dictated by: Alex Echevarria M.D. on 11/16/2018 at 16:31 Approved by: Alex Echevarria M.D. on 11/16/2018 at 16:31
[2018-11-16] MEDS: LACTATED RINGERS 1,000 ML 42 ML IV (12:10)
[2018-11-16] MEDS: VANCOMYCIN 1,000 MG/200 ML FROZ.PIGGY 200 MG IV (12:31)
[2018-11-16] MEDS: ACETAMINOPHEN 325 MG TABLET 975 MG PO ×2 (12:33→21:16)
[2018-11-16] MEDS: CELECOXIB 200 MG CAPSULE PO (12:33)
[2018-11-16] MEDS: PREGABALIN 75 MG CAPSULE PO (12:33)
--- NOTE | 2018-11-16 13:18 | PM.PREOP ---
Pre-operative Note Interval Note History & Physical reviewed/Exam performed by Physician: Yes Changes to H&P: Yes
--- NOTE | 2018-11-16 13:18 | PM.OP.1 ---
Operative Date/Time/Diagnoses Date of procedure: 11/16/18 Time of procedure: 13:18 Pre-op diagnosis: right knee OA Post-op diagnosis: same Procedure & Clinicians Procedure: right total knee arthroplasty Same procedure as scheduled: Yes Indications: The patient has had progressively worsening right knee pain with radiographic changes consistent with arthritis. Non-operative management has failed and the patient has requested total knee replacement. The risks, benefits and alternatives to surgery were discussed with the patient prior to proceeding. Risks discussed included, but were not limited to, failure to relieve pain, stiffness, infection, nerve damage, deep venous thrombosis, pulmonary embolism, stroke, coma, heart attack, permanent paralysis and , as well as the potential need for eventual revision of the prosthetic. Surgeon: Jeannette Carrion Supervisor Inventory Merchandising: Angelita Simon Anesthesia Type: General and Spinal Operative Notes Findings: Severe right knee osteoarthritis, acceptable overall alignment, good balance Closure Type: primary Specimen(s): none sent Implants & Drains: Carrion and Nephchristina Burgos BCS2 4 femur, +10 poly, 2 tibia, 32 by 7.5mm patella Applied: drain(s) Estimated Blood Loss (mL): 250 Blood products transfused: none Tourniquet time (min): 74 Procedure in detail: The patient was seen in the pre-operative area, where the patient identified the right knee as the operative site and this was marked with my initials. The patient received pre-operative antibiotics, and was taken to the operating room and placed on the operative table in the supine position. After satisfactory anesthesia, a real time operator out was performed. The right leg was encircled with a tourniquet about the proximal thigh, and the leg was prepared from the toes to the tourniquet with ChloroPrep in the usual fashion and draped through sterile drapes. The leg was elevated and exsanguinated with Eschmark bandage and the tourniquet inflated to [250] mmHg pressure. The knee was approached through an approximately 18 cm incision centered over the patella and carried into the knee through a medial parapatellar arthrotomy. A portion of the medial and lateral meniscus was resected. Soft tissue was carefully mobilized around the patella the patella was measured with a caliper. Bone was resected from the patella and the patellar height was reconstituted with up an appropriate sized patellar component. A cover was then placed on the patella. A small amount of additional medial and lateral meniscus was resected. The visionare guide fit well to the distal femur. It looked like an appropriate distal femoral cut and the cut was made without difficulty. The rotation was assessed and the appropriate size femoral guide was placed on the distal femur and finishing cuts were made. There is no evidence of notching. The anterior, posterior and chamfer cuts were then made. The posterior osteophytes and soft tissues were then removed. The posterior capsule was injected with part of a mixture of 60 ml 0.25% Marcaine mixed with 20 ml Exparel for post operative pain control. The remainder of this mixture was injected into the capsule and subcutaneous tissues during cement curing. The tibia was prepared and the visionaire guide fit well to the distal tibia. The rotation was assessed. The patient was placed in extension residual medial and lateral meniscus as well as any residual bone was carefully resected. [No] additional tibia was resected. Hemostasis was achieved especially posteriorly. Additional local was injected into the posterior capsule. The extension gap was assessed and additional releases for gap balancing were performed as necessary. It was checked with the gap filter assembler. The femoral component was trial was placed and the notch was finished. Trial tibial and femoral components were then placed and the knee placed through a range of motion. Range of motion was [0-130], with good stability throughout the range. The trials were then removed, and the tibia was finished. The bone was prepared with pulsatile lavage, and dried with a sponge. Cement was applied and the final prosthetics placed. Excess cement was removed during and after cement curing. A brief Betadine soak was performed. After confirming there was no extruded cement posteriorly, the final tibial insert was placed. The knee was copiously irrigated and the tourniquet deflated. Hemostasis was obtained with the Bovie. A drain was placed and brought out superolaterally. The capsule was closed with interrupted suture. The subcutaneous layer was closed with barbed sutures, and the skin with a running 3-0 V-Lock suture and Surgical glue. An Aquacel Ag dressing was applied and the patient was taken to recovery having tolerated the procedure well. Complications: none Condition: stable Disposition: Acute Care Plan for aftercare: The patient will be maintained on a standard total knee replacement protocol with weight bearing as tolerated. The patient will receive aspirin and sequential compression devices for DVT prophylaxis. The patient will be discharged home when safe for the home environment.
[2018-11-16] MEDS: CEFAZOLIN 2 GM/100 ML FROZ.PIGGY IV ×2 (13:35→21:21)
--- NOTE | 2018-11-16 13:53 | SUR.PREOP ---
Block start time 1320. Monitoring initiated and maintained throughout procedure. Oxygen and medications given per anesthesiologist instructions. Patient remained stable throughout procedure, no adverse reactions noted. Block end time 1330.
--- NOTE | 2018-11-16 14:04 | SUR.OPER ---
Supine on padded OR bed. Pillow under head, arms secured on padded armboards <90 degree abduction. Safety belt across torso. Non-operative leg secured with tape over blanket over lower leg. Operative leg secured in DeMayo/Jesse positioner. Foam padded brace at thigh of operative leg.
[2018-11-16] MEDS: BUPIVACAINE 0.25% W/ EPI VIAL 50 ML INJ (14:10)
[2018-11-16] MEDS: BUPIVACAINE LIPOSOME 266 MG/20 ML VIAL INJ (14:10)
[2018-11-16] MEDS: POVIDONE-IODINE 15 ML, SODIUM CHLORIDE 0.9% 250 ML TOP (14:11)
--- NOTE | 2018-11-16 14:14 | PM.PROC.1 ---
Procedures Date/Time Date of procedure: 11/16/18 Time of procedure: 13:16 General Procedure description: Ultrasound guided adductor canal nerve block for post op pain control after right total knee arthroplasty by Dr. Carrion. Risk and benefits of procedure discussed with patient. ASA monitoring applied to patient. O2 given via nasal cannula. 1 mg Versed and 25 mcg fentanyl given for procedural sedation. Skin site was prepped with chlorhexidine and allowed to fully dry. Sterile gloves, mask, hat and probe cover were used to maintain sterility. 2% lidocaine and 30ga needle was used to make a small skin wheal at needle insertion site. Under ultrasound guidance, a 21ga 100mm Pajunk needle was directed into the adductor canal near femoral artery and saphenous nerve at the level of mid thigh. Patient reported no parasthesias. After negative aspiration, 20 mL 0.5% ropivicaine and 10mg dexamethasone were injected around saphenous nerve. Patient tolerated procedure well.
--- NOTE | 2018-11-16 15:52 | SUR.PHASEI ---
care transferred to Jann Vega report given.
--- NOTE | 2018-11-16 18:18 | PC.NURSE ---
Addendum entered by Kat Higgins R.N. 11/16/18 22:08: Pt assisted to BR. w/o incidence. Denies discomfort. IVF continue as per orders. Call light w/in reach, bed alarm on for pt safety. Stable post op course, Possible D/C in am. Continue w/plan of care. Original Note: Pt arrived from PACU @ 1625. Alert/awake. Denies discomfort at this time. Dsg to right knee CDI, Hemavac intact/patent. Unclamped at 1745 Call light w/in reach
[2018-11-16] MEDS: LACTATED RINGERS 1,000 ML 125 ML IV (18:24)
[2018-11-16] MEDS: ASPIRIN EC 81 MG TABLET PO (21:17)
[2018-11-16] MEDS: DOCUSATE 100 MG CAPSULE PO (21:18)
[2018-11-16] MEDS: SIMVASTATIN 20 MG TABLET PO (21:19)
[2018-11-17 00:11] VITALS: BP 133/75; PULSE 69; RESP 18; TEMP 36.4; O2SAT 95
[2018-11-17] MEDS: LACTATED RINGERS 1,000 ML 125 ML IV (03:25)
[2018-11-17 04:37] VITALS: BP 150/73; PULSE 71; RESP 16; TEMP 36.6; O2SAT 96
[2018-11-17] MEDS: CEFAZOLIN 2 GM/100 ML FROZ.PIGGY IV (06:13)
[2018-11-17] MEDS: LEVOTHYROXINE 50 MCG TABLET PO (06:13)
--- NOTE | 2018-11-17 06:54 | PC.NURSE ---
Patient is doing very well. Reports having no pain. Ice pack applied throughout night. Able to ambulate to bathroom with FWW and one person SBA with no problems. IVF running as ordered. Hemovac with 50cc of sanguinous drainage. No nausea/emesis. SCDs b/l on throughout night.
[2018-11-17 07:09] LABS: Hematocrit 35.3 % (36-46); Hemoglobin 11.6 g/dL (12.0-16.0)
[2018-11-17 08:00] VITALS: BP 140/58; PULSE 85; RESP 16; TEMP 36.5; O2SAT 97
[2018-11-17 08:07] VITALS: O2SAT 97
--- NOTE | 2018-11-17 08:16 | PM.DS.1 ---
History of Present Illness Date Patient Seen: 11/17/18 Time Patient Seen: 08:17 Chief complaint: [id number] Narrative: Hospital day 2, postop day 1 following right total knee arthroplasty by Dr. Carrion. Patient has remained stable postoperatively. She states she did get as some short-term sleep during the night. She has not had physical therapy yet. Using Tylenol for pain. She has a [facility] patient and has postop pain medications at home. Discharge Providers Date of admission: 11/16/18 11:26 Primary care physician: Danita Armstrong MD Consults: 11/16/18 06:00 Consult to Anesthesiology Routine Comment: Consulting Provider: Anesthesiologist Reason for consultation: Regional block for post operative pain control 11/16/18 17:40 Consult to Discharge Planning Routine Comment: Consult to Physical Therapy Evaluate & Treat Comment: Physician Instructions: postop TKA protocol Consult to Respiratory Therapy Evaluate & Treat Comment: Physician Instructions: Evaluate and treat Discharge provider: Cristiano Hdz PA-C Discharge Date: 11/17/18 Summary Discharge Diagnosis: Status post right total knee arthroplasty Hospital Course: Patient brought to hospital on 10/16/2019 for above noted surgery. She remained stable postoperatively. Progressed with physical therapy ready for discharge home on postop day 1. Status at Discharge Cognitive/behavioral status at discharge: Alert oriented no acute distress. Functional status at discharge: uses cane/walker Overall status at discharge: patient is progressing back to baseline Time Spent with Patient Less than 30 minutes Exam Vital Signs (past 8 hours): - 11/17/18 04:37 11/17/18 08:07 Temperature 97.8 F Pulse Rate 71 Respiratory Rate 16 Blood Pressure 150/73 H Pulse Oximetry 96 97 Fraction of Inspired Oxygen 21 Oxygen Delivery Method Room Air Oxygen Flow Rate 0 Narrative Exam Narrative: Right leg. Brody wrap an Aquacel dressing in place to right knee without drainage or inflammation. Hemovac in place with decreased drainage. No calf pain or swelling. Pulses symmetrical. Objective Labs Result Diagrams: 11/17/18 06:40 Labs: Laboratory Results - last 24 hr 11/17/18 06:40 Hgb 11.6 L Hct 35.3 L Discharge Plan Discharge Plan Patient Disposition: Home Discharge comment: Discharge home after cleared by PT and Hemovac DC'd. Patient is a [facility] patient and has prescriptions at home for oxycodone, meloxicam, Vistaril. Discharge Med Rec/Prescriptions Prescriptions: Continue losartan [Cozaar] 100 MG tablet 100 mg PO QPM Qty: 0 RF: 0 levothyroxine [Synthroid] 75 MCG tablet 75 mcg PO SUTUTHSA Qty: 0 RF: 0 simvastatin 20 MG tablet 20 mg PO HS Qty: 0 RF: 0 levothyroxine [Synthroid] 50 MCG tablet 50 mcg PO MOWEFR Qty: 0 RF: 0 multivitamin [Multiple Vitamins] 1 EACH tablet 1 tab PO QDAY Qty: 0 RF: 0 felodipine 5 MG tablet extended release 24 hr 5 mg PO QDAY Qty: 0 RF: 0 vitamin B complex [B Complex-Vitamin B12] 1 EACH tablet 1 tab PO QDAY Qty: 0 RF: 0 aspirin 81 MG tablet,delayed release (DR/EC) 81 mg PO HS Qty: 0 RF: 0 ascorbic acid (vitamin C) [Vitamin C With Lilibeth Hips] 1,000 mg Tablet Extended Release 1 tab PO DAILY RF: 0 omega-3 fatty acids-fish oil [Fish Oil] 360-1,200 mg Capsule 1,200 mg PO DAILY RF: 0 Calcium 300mg + D3 1 tab PO BID RF: 0 meloxicam 7.5 mg Tablet 7.5 mg PO PRN PRN (Reason: Pain (Scale Score 1-3)) RF: 0 letrozole [Femara] 2.5 mg tablet 2.5 mg PO QPM RF: 0 Provider Discharge Instructions Diet: Diet as Tolerated Activity: Ambulate as tolerated. Cold/Heat Therapy: Cold pack to knee as needed. Skin/Wound/Dressing Care Report to your healthcare provider any signs of infection, such as:: chills, fever, night sweats, increased pain, unusual drainage and unusual redness Dressing: Keep Aquacel dressing in place until postop visit. Visit Report/Discharge Packet Instructions: DI for Knee Replacement Discharge Data Primary Care Provider: Danita Armstrong Attending Provider: Jeannette Carrion Admit Date/Time: 11/16/18 11:26
--- NOTE | 2018-11-17 09:22 | PT.IIE ---
Current Diagnoses Unilateral primary osteoarthritis, right knee (11/16/18) Surgery Performed Operation Date: 11/16/18 13:45 Actual Procedures p Total Knee Arthroplasty(Right) - Jeannette Carrion MD Surgical History (Last Updated 11/04/18 @ 09:45 by Razia Paulino, RN) History of bilateral tubal ligation (Acute) History of esophagogastroduodenoscopy (EGD) (Acute) Hx of appendectomy (Acute) Hx of colonoscopy with polypectomy (Acute) Hx of knee surgery (Acute) Hx of repair of left rotator cuff (Acute) Hx of repair of right rotator cuff (Acute) S/P VANDANA-BSO (Acute) S/P lumpectomy, right breast (Acute 09/23/17) Medical History (Last Updated 11/04/18 @ 09:45 by Razia Paulino RN) Anal fissure (Acute) BCC (basal cell carcinoma) (Acute) Breast cancer, right (Acute) Cataract, right eye (Acute) DJD (degenerative joint disease) (Acute) Diverticulitis (Acute) HTN (hypertension) (Acute) Hiatal hernia (Acute) Hyperlipidemia (Acute) Hypothyroidism (Acute) IBS (irritable bowel syndrome) (Acute) Pancreatitis (Acute 01/10/18) SCC (squamous cell carcinoma) (Acute) Sleep apnea (Acute) Physical Therapy Inpatient Evaluation/Re-Eval M1 PT/OT-IP Prior Functional Status Start: 11/17/18 09:00 Freq: NEEDED Status: Active Protocol: Document 11/17/18 08:30 AMB (Rec: 11/17/18 09:22 AMB [id number]) Medical Review Prior Functional Status Medical History Reviewed Yes Mobility and Gait Pt states she was walking without AD, but was going up stairs two feet to a step. Social History Household Members spouse Living Arrangements House Number of Stairs To Enter/Railing? 3 steps to enter without railing Employment Status Retired M2 PT-IP Current Condition Start: 11/17/18 09:00 Freq: NEEDED Status: Active Protocol: Document 11/17/18 08:30 AMB (Rec: 11/17/18 09:22 AMB [id number]) Physical Therapy Current Condition Current Condition Evaluation Date 11/17/18 Treatment Diagnosis R TKA Onset Date 11/16/18 M3 PT-IP Subjective Start: 11/17/18 09:00 Freq: NEEDED Status: Active Protocol: Document 11/17/18 08:30 AMB (Rec: 11/17/18 09:22 AMB [id number]) Subjective Physical Therapy Visit Type Type Initial Evaluation Visit Start Time 08:30 Visit Stop Time 09:00 Total Visit Minutes 30 Physical Therapy Visit Comments Patient Comments Pt states she is ready to go home Therapy Pain Assessment Pain When Pain Assessed At Rest Pain Present Pain Present Denied Pain M4 PT-IP Mobility and Gait Start: 11/17/18 09:00 Freq: NEEDED Status: Active Protocol: Document 11/17/18 08:30 AMB (Rec: 11/17/18 09:22 AMB [id number]) PT-Bed Mobility Assessment Rolling Type of Rolling Log Rolling Level of Assist Independent Supine to Sit Supine to Sit Independent Sit to Supine Sit to Supine Independent Scooting Scooting to Edge of Bed Independent PT-Transfer Assessment Sit to and From Stand Sit to and from Stand Independent Transfers Transfer Destination Bed Chair Toilet Transfer Technique Stand Pivot Transfer Ability Level of Assist Standby Assistance Gait Assessment Gait Gait Assistance Required: Independent Distance (Feet) 250 Able to Maintain Weight Bearing Status Yes During Gait Assistive Devices Assistive Device Gait Belt Straight Cane Gait Deviations General Gait Pattern Decreased Stride Length Factors Limiting Gait Function Factors Limiting Gait Function Decreased Strength Comments Gait Comments Adjusted pt's FWW to appropriate height, pt used that, then SPC. No LOB. Education on safety and taking her time. Stair Climbing Assessment Evaluation Level of Assist On Stairs Standby Assistance Devices Stair Climbing Assistive Devices Straight Cane Technique/Endurance Stair Climbing Direction Ascend and Descend Stair Climbing Technique Step to Step Number of Steps Climbed 3 Query Text: Stair Climbing Set # Repetitions (reps) 4 Comments Stair Climbing Comments Educated pt on where should stand to guard, as they do not have rails to enter PT-Balance Assessment Sitting Balance and Reactions Static Sitting Balance Ability Normal Dynamic Sitting Balance Ability Normal Standing Balance and Reactions Static Standing Balance Ability Normal Dynamic Standing Balance Ability Good M5 PT-IP Objective Assessments Start: 11/17/18 09:00 Freq: NEEDED Status: Active Protocol: Document 11/17/18 08:30 AMB (Rec: 11/17/18 09:22 AMB [id number]) Orientation Orientation/Cognition Level of Alertness Alert Sensation Assessment Sensation Gross Sensation WNL M6 PT-IP Treatment Start: 11/17/18 09:00 Freq: NEEDED Status: Active Protocol: Document 11/17/18 08:30 AMB (Rec: 11/17/18 09:22 AMB [id number]) Physical Therapy Treatment Exercises Exercises Ankle Pumps Quad Sets Heel Slides Education Education Provided Weight Bearing Status Post-Op Packet Safety M7 PT-IP Assessment and Plan Start: 11/17/18 09:00 Freq: NEEDED Status: Active Protocol: Document 11/17/18 08:30 AMB (Rec: 11/17/18 09:22 AMB [id number]) PT Summary Assessment and Plan Potential Rehabilitation Potential Good Status of Condition at Evaluation Stable Summary Impairments ROM Strength Gait Activity Tolerance Assessment Summary Pt states she is ready to go home. She is concerned about getting in and out of bed as she has a tall bed with a step . She was able to ambulate in her room independently, and was cleared to ambulate in her room with a FWW independently , knowing that she needs to be aware of her drain. Educated in stairs and how her can safely assist her. Has outpatient PT scheduled. Good pain control at this time. Safe to d/c home. Discharge Recommendations PT Discharge Recommendations Home with Assistance Outpatient PT Other Discharge Recommendations Patient discharged from PT at this time.
[2018-11-17] MEDS: IBUPROFEN 600 MG TABLET PO (10:17)
[2018-11-17] MEDS: DOCUSATE 100 MG CAPSULE PO (10:29)
[2018-11-17] MEDS: ACETAMINOPHEN 325 MG TABLET 975 MG PO (10:30)
[2018-11-17] MEDS: ASPIRIN EC 81 MG TABLET PO (10:30)
[2018-11-17] MEDS: FELODIPINE ER 5 MG TAB PO (10:32)
--- NOTE | 2018-11-17 13:13 | PC.NURSE ---
Discharge Pt states pain controlled with tylenol and ibuprofen. Used ice pack on knee after ambulating this AM as pain did increase which helped. PIV and HV removed without issue this AM. d/c instructions provided to pt and her . Aware to contact MD with additional questions or concerns. f/u apt scheduled with ortho PA, pt aware. pt left with all her belongings. left in w/c with [employer] escort to private vehicle.
== END 2018-11-17 13:15 | disposition home or self-care (01) ==
LOC: AC 11-17 12:50 → OR 11-18 09:21
PROVIDERS: PCP Family Medicine; Visit Provider Orthopaedic Surgery
PROC: 0SRC0JZ Replacement of Right Knee Joint with Synthetic Substitute, Open Approach (ICD-10-PCS; CPT 27447; principal; 2018-11-16 13:45)
DX: M17.11 Unilateral primary osteoarthritis, right knee (principal); E66.9 Obesity, unspecified; Z68.29 Body mass index [BMI] 29.0-29.9, adult; G89.18 Other acute postprocedural pain
CPT/HCPCS: 27447; 36415; 64447; 73560; 85014; 85018; 94760; 94762; 97161; C1776; C9290; J0690; J1100; J2250; J2274; J2405; J2704; J2795; J3010; J3370

== ENCOUNTER → 2018-12-08 12:24 | Outpatient (CLI) | payer MEDICARE, OTHER, SELFPAY ==
[2018-11-16 17:41] VITALS: BMI 29.5
== END ==
PROVIDERS: Family Provider Orthopaedic Surgery; PCP Family Medicine; Visit Provider Internal Medicine Hematology & Oncology
DX: Z13.820 Encounter for screening for osteoporosis (principal); M85.832 Other specified disorders of bone density and structure, left forearm; Z78.0 Asymptomatic menopausal state
CPT/HCPCS: 77080

== ENCOUNTER → 2019-01-10 13:15 | Outpatient (CLI) | payer MEDICARE, OTHER, SELFPAY ==
[2018-11-16 17:41] VITALS: BMI 29.5
== END ==
PROVIDERS: Family Provider Orthopaedic Surgery; PCP Family Medicine; Visit Provider Internal Medicine Hematology & Oncology
DX: D05.11 Intraductal carcinoma in situ of right breast (principal)

== ENCOUNTER → 2019-01-26 13:15 | Outpatient (CLI) | payer MEDICARE, OTHER, SELFPAY ==
[2018-11-16 17:41] VITALS: BMI 29.5
--- NOTE | 2019-01-26 | DI.MG.S_ITS ---
UNILATERAL LEFT DIGITAL DIAGNOSTIC MAMMOGRAM 3D/2D POST LUMPECTOMY: 01/26/2019 CLINICAL: Patient returns for a 6 month follow up of the left breast. Comparison is made to exams dated: 08/23/2018 mammogram, 07/21/2018 mammogram, and 07/08/2017 mammogram - [facility]. The tissue of left breast is heterogeneously dense. This may lower the sensitivity of mammography. There are stable benign diffuse dystrophic calcifications in the left breast middle depth central to the nipple. No other significant masses or calcifications are seen in the breast. IMPRESSION: Stable calcifications in the left breast. No developing density or suspicious features. Return to annual mammogram screening schedule is recommended. Findings and recommendations conveyed to the patient. This exam was interpreted at Station ID: [id number]. NOTE: For mammograms, a report in lay terms will be sent to the patient. Approximately 15% of breast malignancies will not be visualized mammographically. In the management of a palpable breast mass, a negative mammogram must not discourage biopsy of a clinically suspicious lesion. Electronically Signed By: Keyana savage/:01/26/2019 14:51:39 copy to: CHAD SUBRAMANIAN letter sent: Normal Exam ACR BI-RADS Category 2: Benign Finding(s) 3342F
== END ==
PROVIDERS: Family Provider Orthopaedic Surgery; PCP Family Medicine; Visit Provider Family Medicine
DX: R92.1 Mammographic calcification found on diagnostic imaging of breast (principal)
CPT/HCPCS: 77065; G0279

== ENCOUNTER → 2019-06-15 12:36 | Outpatient (CLI) | payer MEDICARE, OTHER, SELFPAY ==
[2018-11-16 17:41] VITALS: BMI 29.5
[2019-06-15 13:11] LABS: Add Manual Diff / Slide Review NO; Basophils Absolute Auto 0 /uL (0-100); Basophils Percent Auto 0.4 % (0-2); Eosinophils Absolute Auto 100 /uL (0-450); Eosinophils Percent Auto 1.8 % (2-4); Hemoglobin 12.5 g/dL (12.0-16.0); Lymphocytes Absolute Auto 1200 /uL (1100-4500); Lymphocytes Percent Auto 15.3 % (25-40); Mean Corpuscular HGB Conc 32.9 % (30-36); Mean Corpuscular Hemoglobin 29.9 PG (26-34); Monocytes Absolute Auto 1000 /uL (0-900); Monocytes Percent Auto 11.9 % (3-14); Neutrophils Absolute Auto 5800 /uL (1500-7000); Neutrophils Percent Auto 70.6 % (50-75); Platelet Count 199 X10^3/uL (150-400); Red Blood Cell Count 4.18 X10^6/uL (4.0-5.2); Red Cell Distribution Width 14.6 % (11.6-14.8); White Blood Cell Count 8.2 X10^3/uL (4.5-11.0)
[2019-06-15 13:29] LABS: Alanine Aminotransferase 19 IU/L (9-52); Albumin 4.4 g/dL (3.5-5.0); Albumin Globulin Ratio 1.3 (1.0-2.8); Alkaline Phosphatase 77 U/L (38-126); Aspartate Aminotransferase 31 IU/L (14-36); BUN Creatinine Ratio 28.9 (6-22); Bilirubin Total 0.4 mg/dL (0.2-1.3); Blood Urea Nitrogen 26 mg/dL (7-17); Calcium 10.4 mg/dL (8.4-10.2); Carbon Dioxide 30 mmol/L (22-32); Chloride 103 mmol/L (98-107); Estimated Glomerular Filt Rate > 60.0 mL/min (>60); Globulin 3.4 g/dL (1.7-4.1); Glucose 107 mg/dL (80-110); HEMOLYSIS < 15 (0-50); Sodium 141 mmol/L (137-145); Total Protein 7.8 g/dL (6.3-8.2)
== END ==
PROVIDERS: Family Provider Orthopaedic Surgery; PCP Family Medicine; Visit Provider Internal Medicine Hematology & Oncology
DX: D05.11 Intraductal carcinoma in situ of right breast (principal)
CPT/HCPCS: 36415; 80053; 85025

== ENCOUNTER → 2019-07-22 12:18 | Outpatient (CLI) | payer MEDICARE, OTHER, SELFPAY ==
[2018-11-16 17:41] VITALS: BMI 29.5
--- NOTE | 2019-07-22 12:22 | DI.MG.S_ITS ---
BILATERAL DIGITAL SCREENING MAMMOGRAM 3D/2D WITH CAD POST LUMPECTOMY: 07/22/2019 CLINICAL: Routine screening. Personal history of right breast cancer. Comparison is made to exams dated: 07/21/2018 mammogram, 08/24/2017 breast MRI, and 07/08/2017 mammogram - [facility]. The tissue of both breasts is heterogeneously dense. This may lower the sensitivity of mammography. Current study was also evaluated with a Computer Aided Detection (CAD) system. There are benign calcifications in both breasts. There also are benign post operative findings in the right breast. No significant masses, calcifications, or other findings are seen in either breast. There has been no significant interval change. IMPRESSION: There is no mammographic evidence of malignancy. A 1 year screening mammogram is recommended. This exam was interpreted at Station ID: [id number]. NOTE: For mammograms, a report in lay terms will be sent to the patient. Approximately 15% of breast malignancies will not be visualized mammographically. In the management of a palpable breast mass, a negative mammogram must not discourage biopsy of a clinically suspicious lesion. Electronically Signed By: Vita olea/nathaniel:07/22/2019 13:36:13 copy to: CHAD SUBRAMANIAN letter sent: Normal Exam ACR BI-RADS Category 2: Benign Finding(s) 3342F
--- NOTE | 2019-08-11 14:06 | ONC.MSW ---
Description: Zometa Activity: Called and left a message for pt that in order to move forward with getting scheduled for Zometa, she will need to go to her dentist and get a medical clearance first. Encouraged her to call back should she have any additional questions.
== END ==
PROVIDERS: Family Provider Internal Medicine Hematology & Oncology; PCP Family Medicine; Visit Provider Family Medicine
DX: Z12.31 Encounter for screening mammogram for malignant neoplasm of breast (principal); Z85.3 Personal history of malignant neoplasm of breast
CPT/HCPCS: 77063; 77067

== ENCOUNTER → 2019-09-27 11:51 | Outpatient (CLI) | payer MEDICARE, OTHER, SELFPAY ==
[2018-11-16 17:41] VITALS: BMI 29.5
--- NOTE | 2019-09-27 | DI.RAD.S_ITS ---
PROCEDURE: XR HIP W PEL IF DONE RT 2V INDICATIONS: RIGHT HIP PAIN TECHNIQUE: AP pelvis with lateral view(s) of the right hip(s). COMPARISON: None. FINDINGS: Bones: No fractures or dislocations. Pelvic ring appears intact. No suspicious bony lesions. Lower lumbar spondylosis and mild bilateral hip joint degeneration. Soft tissues: The visualized bowel gas pattern is normal. No suspicious soft tissue calcifications. IMPRESSION: Mild bilateral hip degeneration Lower lumbar spondylosis Dictated by: Tyron Velasquez M.D. on 09/27/2019 at 15:01 Approved by: Tyron Velasquez M.D. on 09/27/2019 at 15:02
== END ==
PROVIDERS: PCP Family Medicine; Visit Provider Family Medicine
DX: M25.551 Pain in right hip (principal); M16.0 Bilateral primary osteoarthritis of hip; M47.816 Spondylosis without myelopathy or radiculopathy, lumbar region
CPT/HCPCS: 73502

== ENCOUNTER → 2020-02-15 13:37 | Outpatient (CLI) | payer MEDICARE, OTHER, SELFPAY ==
[2018-11-16 17:41] VITALS: BMI 29.5
[2020-02-15 14:01] LABS: Add Manual Diff / Slide Review NO; Basophils Absolute Auto 100 /uL (0-100); Basophils Percent Auto 0.9 % (0-2); Eosinophils Absolute Auto 100 /uL (0-450); Eosinophils Percent Auto 1.4 % (2-4); Hematocrit 37.2 % (36-46); Hemoglobin 12.6 g/dL (12.0-16.0); Lymphocytes Absolute Auto 1600 /uL (1100-4500); Lymphocytes Percent Auto 19.1 % (25-40); Mean Corpuscular Volume 91.1 fL (80-100); Monocytes Absolute Auto 800 /uL (0-900); Monocytes Percent Auto 9.9 % (3-14); Neutrophils Absolute Auto 5900 /uL (1500-7000); Neutrophils Percent Auto 68.7 % (50-75); Platelet Count 224 X10^3/uL (150-400); Red Blood Cell Count 4.09 X10^6/uL (4.0-5.2); Red Cell Distribution Width 13.8 % (11.6-14.8); White Blood Cell Count 8.6 X10^3/uL (4.5-11.0)
[2020-02-15 14:26] LABS: Alanine Aminotransferase 18 IU/L (<35); Albumin 4.5 g/dL (3.5-5.0); Albumin Globulin Ratio 1.3 (1.0-2.8); Alkaline Phosphatase 58 U/L (38-126); Aspartate Aminotransferase 33 IU/L (14-36); BUN Creatinine Ratio 37.2 (6-22); Bilirubin Total 0.3 mg/dL (0.2-1.3); Blood Urea Nitrogen 32 mg/dL (7-17); Calcium 10.2 mg/dL (8.4-10.2); Carbon Dioxide 26 mmol/L (22-32); Chloride 103 mmol/L (98-107); Estimated Glomerular Filt Rate > 60.0 mL/min (>60); Globulin 3.6 g/dL (1.7-4.1); Glucose 109 mg/dL (80-110); HEMOLYSIS 17 (0-50); Potassium 3.8 mmol/L (3.4-5.1); Sodium 137 mmol/L (137-145); Total Protein 8.1 g/dL (6.3-8.2)
[2020-02-17 14:12] LABS: Albumin 3.7 g/dL (2.9-4.4); Alpha-1-Globulin 0.2 g/dL (0.0-0.4); Alpha-2-Globulin 0.7 g/dL (0.4-1.0); Gamma Globulin 1.4 g/dL (0.4-1.8); Globulin Total 3.4 g/dL (2.2-3.9); Protein, Total 7.1 g/dL (6.0-8.5)
== END ==
PROVIDERS: PCP Family Medicine; Referring Provider Internal Medicine Hematology & Oncology; Visit Provider Internal Medicine Hematology & Oncology
DX: D05.11 Intraductal carcinoma in situ of right breast (principal); E83.52 Hypercalcemia
CPT/HCPCS: 36415; 80053; 84155; 84165; 85025

== ENCOUNTER → 2020-07-24 10:53 | Outpatient (CLI) | payer MEDICARE, OTHER, SELFPAY ==
[2018-11-16 17:41] VITALS: BMI 29.5
--- NOTE | 2020-07-24 10:54 | DI.MG.S_ITS ---
BILATERAL DIGITAL SCREENING MAMMOGRAM 3D/2D WITH CAD POST LUMPECTOMY: 07/24/2020 CLINICAL: Routine screening. Personal history of right breast cancer. Comparison is made to exams dated: 07/22/2019 mammogram, 07/21/2018 mammogram, and 07/08/2017 mammogram - [facility]. The tissue of both breasts is heterogeneously dense. This may lower the sensitivity of mammography. Current study was also evaluated with a Computer Aided Detection (CAD) system. There are benign calcifications in both breasts. There also are benign post operative findings in the right breast. No significant masses, calcifications, or other findings are seen in either breast. There has been no significant interval change. IMPRESSION: BENIGN There is no mammographic evidence of malignancy. A 1 year screening mammogram is recommended. This exam was interpreted at Station ID: [id number]. NOTE: For mammograms, a report in lay terms will be sent to the patient. Approximately 15% of breast malignancies will not be visualized mammographically. In the management of a palpable breast mass, a negative mammogram must not discourage biopsy of a clinically suspicious lesion. Electronically Signed By: Aiden Nielsen M.D., jr/nathaniel:07/24/2020 11:49:39 copy to: JUDI VALENZUELA letter sent: Normal Exam ACR BI-RADS Category 2: Benign Finding(s) 3342F
== END ==
PROVIDERS: PCP Family Medicine; Referring Provider Internal Medicine Hematology & Oncology; Visit Provider Internal Medicine Hematology & Oncology
DX: Z12.31 Encounter for screening mammogram for malignant neoplasm of breast (principal); Z85.3 Personal history of malignant neoplasm of breast
CPT/HCPCS: 77063; 77067

== ENCOUNTER → 2021-01-11 12:28 | Outpatient (CLI) | payer MEDICARE, OTHER, SELFPAY ==
[2018-11-16 17:41] VITALS: BMI 29.5
== END ==
PROVIDERS: PCP Family Medicine; Referring Provider Family Medicine; Visit Provider Family Medicine
DX: M85.80 Other specified disorders of bone density and structure, unspecified site (principal); Z78.0 Asymptomatic menopausal state; E07.9 Disorder of thyroid, unspecified; Z85.3 Personal history of malignant neoplasm of breast; Z90.722 Acquired absence of ovaries, bilateral
CPT/HCPCS: 77080

== ENCOUNTER → 2021-07-30 10:58 | Outpatient (CLI) | payer MEDICARE, OTHER, SELFPAY ==
[2018-11-16 17:41] VITALS: BMI 29.5
--- NOTE | 2021-07-30 10:59 | DI.MG.S_ITS ---
BILATERAL DIGITAL SCREENING MAMMOGRAM 3D/2D WITH CAD: 07/30/2021 CLINICAL: Routine screening. Breast cancer. Comparison is made to exams dated: 07/24/2020 mammogram, 01/26/2019 mammogram, 07/22/2019 mammogram, 08/23/2018 mammogram, and 07/21/2018 mammogram - [facility]. The tissue of both breasts is heterogeneously dense. This may lower the sensitivity of mammography. Current study was also evaluated with a Computer Aided Detection (CAD) system. There are benign calcifications in both breasts. There also are benign post operative findings in the right breast. No significant masses, calcifications, or other findings are seen in either breast. There has been no significant interval change. IMPRESSION: BENIGN There is no mammographic evidence of malignancy. A 1 year screening mammogram is recommended. This exam was interpreted at Station ID: [id number]. NOTE: For mammograms, a report in lay terms will be sent to the patient. Approximately 15% of breast malignancies will not be visualized mammographically. In the management of a palpable breast mass, a negative mammogram must not discourage biopsy of a clinically suspicious lesion. Electronically Signed By: Jose Luis lopez/nathaniel:07/30/2021 13:07:54 copy to: JUDI VALENZUELA letter sent: Normal Exam ACR BI-RADS Category 2: Benign Finding(s) 3342F
== END ==
PROVIDERS: PCP Family Medicine; Referring Provider Internal Medicine Hematology & Oncology; Visit Provider Internal Medicine Hematology & Oncology
DX: Z12.31 Encounter for screening mammogram for malignant neoplasm of breast (principal); D05.11 Intraductal carcinoma in situ of right breast
CPT/HCPCS: 77063; 77067

== ENCOUNTER → 2021-10-03 09:59 | Outpatient (CLI) | payer MEDICARE, OTHER, SELFPAY ==
[2018-11-16 17:41] VITALS: BMI 29.5
[2021-10-03 12:26] LABS: Add Manual Diff / Slide Review NO; Basophils Absolute Auto 0 /uL (0-100); Basophils Percent Auto 0.6 % (0-2); Eosinophils Absolute Auto 100 /uL (0-450); Eosinophils Percent Auto 1.7 % (2-4); Hematocrit 39.1 % (36-46); Hemoglobin 13.1 g/dL (12.0-16.0); Lymphocytes Absolute Auto 1200 /uL (1100-4500); Lymphocytes Percent Auto 21.6 % (25-40); Mean Corpuscular HGB Conc 33.6 % (30-36); Mean Corpuscular Hemoglobin 30.9 PG (26-34); Mean Corpuscular Volume 91.9 fL (80-100); Monocytes Absolute Auto 700 /uL (0-900); Monocytes Percent Auto 12.3 % (3-14); Neutrophils Absolute Auto 3600 /uL (1500-7000); Neutrophils Percent Auto 63.8 % (50-75); Platelet Count 230 X10^3/uL (150-400); Red Blood Cell Count 4.25 X10^6/uL (4.0-5.2); Red Cell Distribution Width 13.8 % (11.6-14.8); White Blood Cell Count 5.6 X10^3/uL (4.5-11.0)
[2021-10-03 12:45] LABS: Alanine Aminotransferase 25 IU/L (<35); Albumin 4.7 g/dL (3.5-5.0); Albumin Globulin Ratio 1.4 (1.0-2.8); Alkaline Phosphatase 55 U/L (38-126); Aspartate Aminotransferase 35 IU/L (14-36); BUN Creatinine Ratio 27.5 (6-22); Bilirubin Total 0.6 mg/dL (0.2-1.3); Blood Urea Nitrogen 28 mg/dL (7-17); Calcium 10.1 mg/dL (8.4-10.2); Carbon Dioxide 30 mmol/L (22-32); Chloride 102 mmol/L (98-107); Cholesterol 167 mg/dL (140-199); Globulin 3.4 g/dL (1.7-4.1); Glucose 88 mg/dL (80-110); HDL Cholesterol 52 mg/dL (40-60); HEMOLYSIS < 15 (0-50); LDL Cholesterol Calculated 85 mg/dL (<100); Sodium 139 mmol/L (137-145); Total Protein 8.1 g/dL (6.3-8.2); Triglycerides 148 mg/dL (35-150)
[2021-10-03 13:17] LABS: Free T4, Direct Thyroxine 1.48 ng/dL (0.78-2.19)
[2021-10-03 13:31] LABS: Thyroid Stimulating Hormone 2.02 uIU/mL (0.47-4.68)
== END ==
PROVIDERS: PCP Family Medicine; Referring Provider Family Medicine; Visit Provider Family Medicine
DX: E83.52 Hypercalcemia (principal); I10 Essential (primary) hypertension; E78.5 Hyperlipidemia, unspecified; E03.9 Hypothyroidism, unspecified; D05.11 Intraductal carcinoma in situ of right breast; M85.80 Other specified disorders of bone density and structure, unspecified site
CPT/HCPCS: 36415; 80053; 80061; 84439; 84443; 85025

== ENCOUNTER → 2021-11-11 15:21 | Outpatient (CLI) | payer MEDICARE, OTHER, SELFPAY ==
[2018-11-16 17:41] VITALS: BMI 29.5
--- NOTE | 2021-11-11 15:24 | DI.RAD.S_ITS ---
PROCEDURE: XR TIBIA FUBULA RT 2V INDICATIONS: PAIN TECHNIQUE: 2 views of the tibia and fibula were acquired. COMPARISON: CR, XR KNEE RT 1TO2V, 11/16/2018, 16:11. FINDINGS: Bones: No fractures or dislocations. No suspicious bony lesions. Knee arthroplasty is present. Hardware is intact without evidence of fracture or periprosthetic lucency to suggest loosening. Soft tissues: No suspicious soft tissue calcifications or masses. IMPRESSION: No visualized acute fracture or dislocation. However, if clinical concern and/or pain persist, short interval imaging followup in 7-10 days is recommended, as occult injury cannot be definitively excluded. Dictated by: Kristin Chen M.D. on 11/12/2021 at 11:37 Approved by: Kristin Chen M.D. on 11/12/2021 at 11:38
== END ==
PROVIDERS: PCP Family Medicine; Referring Provider Family Medicine; Visit Provider Family Medicine
DX: M79.604 Pain in right leg (principal)
CPT/HCPCS: 73590

== ENCOUNTER 2022-01-26 08:21 | Emergency (ER) | payer MEDICARE, OTHER, SELFPAY ==
[2018-11-16 17:41] VITALS: BMI 29.5
[2022-01-26 08:54] VITALS: BP 141/75; PULSE 81; RESP 18; TEMP 36.6; O2SAT 98; BMI 31.8
--- NOTE | 2022-01-26 09:09 | ED.GENADULT ---
HPI - General Adult General Chief complaint: Urogenital-Female Stated complaint: Thinks UTI Time Seen by Provider: 01/26/22 08:35 Source: patient Mode of arrival: Family Vehicle History of Present Illness HPI narrative: 81-year-old female who is here for evaluation of dysuria, frequency, urgency. No fevers. No vomiting. Does have some lower back pain on the right. Has had an issue with urinary retention in the past but that was many years ago. She does not have frequent urinary tract infections. She has not tried anything for her symptoms prior to arrival. Related Data Home Medications Medication Instructions Recorded Confirmed levothyroxine 75 mcg tablet 75 mcg PO SUTUTHSA #0 06/21/13 08/08/21 (Synthroid) losartan 100 mg tablet (Cozaar) 100 mg PO QPM #0 06/21/13 08/08/21 simvastatin 20 mg tablet 20 mg PO HS #0 06/21/13 08/08/21 aspirin 81 mg tablet,delayed 81 mg PO HS #0 09/04/17 08/08/21 release felodipine 5 mg tablet,extended 5 mg PO QDAY #0 09/04/17 08/08/21 release 24 hr levothyroxine 50 mcg tablet 50 mcg PO MOWEFR #0 09/04/17 08/08/21 (Synthroid) multivitamin (Multiple Vitamins) 1 tab PO QDAY #0 09/04/17 08/08/21 omega-3 fatty acids-fish oil 360 1,200 mg PO DAILY 05/10/18 08/08/21 mg-1,200 mg capsule (Fish Oil) letrozole 2.5 mg tablet (Femara) 2.5 mg PO QPM 11/04/18 08/08/21 bimatoprost 0.01 % eye drops 1 drp OPHTHALMIC (EYE) DAILY 01/16/20 08/08/21 (Lumigan) hydrochlorothiazide 12.5 mg tablet 12.5 mg PO DAILY 01/16/20 08/08/21 Bifidobacterium infantis 4 mg 1 mg PO 3XW 07/30/20 08/08/21 capsule (Align) calcium carbonate 600 mg-vitamin 1 cap PO BID 07/30/20 08/08/21 D3 5 mcg (200 unit) capsule (Calcium 600 + D(3)) carboxymethylcellulose sodium 0.25 1 % OPHTHALMIC (EYE) BID PRN 07/30/20 08/08/21 % eye drops (TheraTears) glucosam 750 mg-chondroi 100 1 tab PO 3XW 07/30/20 08/08/21 mg-hyalur 1.65 mg-CF borate 108 mg tablet (Move Free Picolight) tolterodine 1 mg tablet (Detrol) 1 mg PO DAILY 01/14/21 08/08/21 Previous Rx's Medication Instructions Recorded nitrofurantoin 100 mg PO Q12H 5 Days #10 cap 01/26/22 monohydrate/macrocrystals 100 mg capsule (Macrobid) phenazopyridine 100 mg tablet 100 mg PO TID PRN #6 tab 01/26/22 (Pyridium) Allergies Allergy/AdvReac Type Severity Reaction Status Date / Time metronidazole [From Flagyl] AdvReac Severe Diarrhea Verified 01/26/22 08:56 Review of Systems Constitutional Constitutional: Denies fever(s) Gastrointestinal Gastrointestinal: Reports as per HPI and Reports system reviewed and no additional complaints, except as documented Genitourinary Genitourinary: Reports system reviewed and no additional complaints, except as documented and Reports as per HPI Musculoskeletal Musculoskeletal: Reports system reviewed and no additional complaints, except as documented and Reports as per HPI Hematologic/Lymphatic On Anticoagulants: No Patient History Medical History Anal fissure BCC (basal cell carcinoma) Breast cancer, right Cataract, right eye Diverticulitis DJD (degenerative joint disease) Hiatal hernia HTN (hypertension) Hyperlipidemia Hypothyroidism IBS (irritable bowel syndrome) Pancreatitis (01/10/18) SCC (squamous cell carcinoma) Sleep apnea Surgical History (Updated 06/16/19 @ 13:00 by Stephani Pelletier MD) History of bilateral tubal ligation History of esophagogastroduodenoscopy (EGD) Hx of appendectomy Hx of colonoscopy with polypectomy Hx of knee surgery Hx of repair of left rotator cuff Hx of repair of right rotator cuff S/P lumpectomy, right breast (09/23/17) S/P VANDANA-BSO Social History household members: spouse housing: house education level: high school Smoking Status: Never smoker alcohol intake: current substance use type: does not use Smoking Status: Never smoker alcohol intake frequency: holidays/special occasions only Substance Use Type: does not use Exam Initial Vital Signs Initial Vital Signs: Vital Signs Temperature 97.8 F 01/26/22 08:54 Pulse Rate 81 01/26/22 08:54 Respiratory Rate 18 01/26/22 08:54 Blood Pressure 141/75 H 01/26/22 08:54 Pulse Oximetry 98 01/26/22 08:54 HENMT Head: normal to inspection and normocephalic Resp Effort & Inspection: normal respiratory effort Auscultation: clear to auscultation bilaterally Cardio Rate: regular rate Rhythm: regular rhythm GI Palpation: soft and No tender Back/Spine/Pelvis Back: No CVA tenderness Skin General: no rashes or lesions noted Neuro General: patient alert, patient awake and moves all extremities Extrem General: normal to inspection and capillary refill normal Psych Appearance: grossly normal and well kempt Course Orders Ordered: ED Orders 01/26/22 09:08 Urinalysis and Microscopic Stat Urine Culture Stat Vital Signs Vital signs: Vital Signs - 8 hr 01/26/22 08:54 Temperature 97.8 F Pulse Rate 81 Respiratory Rate 18 Blood Pressure 141/75 H Pulse Oximetry 98 Medical Decision Making Lab Data Labs: Lab Results 01/26/22 Range/Units 09:08 Urine Color Yellow Urine Appearance Clear Urine pH 6.5 (4.5-8.0) Ur Specific Proctor 1.010 (1.000-1.035) Urine Protein Negative (Negative) Urine Glucose (UA) Negative (Negative) g/dL Urine Ketones Negative (NEGATIVE) Urine Occult Blood 3+ H (Negative) Urine Nitrate Negative (Negative) Urine Bilirubin Negative (NEGATIVE) Urine Urobilinogen 0.2 (0.2) E.U./dL Ur Leukocyte Esterase 1+ H (NEGATIVE) Urine RBC 10-30/hpf H (0-5/HPF) Urine WBC 10-30/hpf H (0-5/HPF) Ur Squamous Epith Cells None seen (0-5/HPF) Urine Bacteria Few (2-10) H (None) Ur Culture Indicated? Specimen cultured MDM Narrative Medical decision making narrative: Patient's urinalysis today is consistent with urinary tract infection which is supported by her clinical presentation. I have low suspicion for pyelonephritis. Urine culture was ordered and was pending at the time of discharge. Will send home with prescription for antibiotics and also Pyridium. She was given strict return precautions. She expressed understanding and agreement. Discharge Plan Departure Patient Disposition: Home Clinical Impression: Urinary tract infection Instructions: DI for Urinary Tract Infection (UTI) Activity Restrictions/Additional Instructions: Please start taking the antibiotics as directed. There is also a medication called peridium that will help with the discomfort that your having. Contact your primary doctor for a follow-up. Return to the emergency department for any new or worsening symptoms. Prescriptions: New nitrofurantoin monohyd/m-cryst [Macrobid] 100 mg capsule 100 mg PO Q12H 5 Days Qty: 10 0RF Rx Instructions: must administer with a meal/food phenazopyridine [Pyridium] 100 mg tablet 100 mg PO TID PRN (Reason: pain) Qty: 6 0RF No Action losartan [Cozaar] 100 MG tablet 100 mg PO QPM Qty: 0 0RF levothyroxine [Synthroid] 75 MCG tablet 75 mcg PO SUTUTHSA Qty: 0 0RF simvastatin 20 MG tablet 20 mg PO HS Qty: 0 0RF levothyroxine [Synthroid] 50 MCG tablet 50 mcg PO MOWEFR Qty: 0 0RF multivitamin [Multiple Vitamins] 1 EACH tablet 1 tab PO QDAY Qty: 0 0RF felodipine 5 MG tablet extended release 24 hr 5 mg PO QDAY Qty: 0 0RF aspirin 81 MG tablet,delayed release (DR/EC) 81 mg PO HS Qty: 0 0RF omega-3 fatty acids-fish oil [Fish Oil] 360-1,200 mg Capsule 1,200 mg PO DAILY 0RF hydrochlorothiazide 12.5 mg Tablet 12.5 mg PO DAILY 0RF Lumigan 0.01 % Drops 1 drp OPHTHALMIC (EYE) DAILY 0RF Calcium 600 + D(3) 600 mg calcium- 200 unit Capsule 1 cap PO BID 0RF Move Free Joint Health 750 mg-100 mg- 1.65 mg-108 mg Tablet 1 tab PO 3XW 0RF Align 4 mg Capsule 1 mg PO 3XW 0RF TheraTears 0.25 % Drops 1 % OPHTHALMIC (EYE) BID PRN (Reason: Dry Eye(S)) 0RF tolterodine [Detrol] 1 mg Tablet 1 mg PO DAILY 0RF Label Comments: Pt to verify dose letrozole [Femara] 2.5 mg tablet 2.5 mg PO QPM 0RF Referrals: Danita Armstrong MD [Primary Care Provider] -
[2022-01-26 09:37] LABS: Appearance Urine UA CLEAR; Bilirubin Urine UA NEGATIVE (NEGATIVE); Color Urine UA YELLOW; Glucose Urine UA NEGATIVE (Negative); Ketones Urine UA NEGATIVE (NEGATIVE); Leukocyte Esterase Urine UA 1+ (NEGATIVE); Nitrite Urine UA NEGATIVE (Negative); Occult Blood Urine UA 3+ (Negative); Protein Urine UA NEGATIVE (Negative); Urobilinogen Urine UA 0.2 E.U./dL (0.2)
[2022-01-26 09:40] LABS: pH Urine UA 6.5 (4.5-8.0)
[2022-01-26 10:14] LABS: Bacteria Urine Few (2-10); Culture Indicated Urine Specimen Cultured; RBC Urine 10-30/HPF (0-5/HPF); Squamous Epithelial Cell Urine None Seen (0-5/HPF); WBC Urine 10-30/HPF (0-5/HPF)
== END 2022-01-26 11:07 | disposition home or self-care (01) ==
PROVIDERS: Emergency Provider Emergency Medicine; PCP Family Medicine
DX: N39.0 Urinary tract infection, site not specified (principal)
CPT/HCPCS: 51798; 81001; 87077; 87086; 87186; 99282

== ENCOUNTER → 2022-05-01 13:54 | Outpatient (CLI) | payer MEDICARE, OTHER, SELFPAY ==
[2018-11-16 17:41] VITALS: BMI 29.5
--- NOTE | 2022-05-01 | DI.US.S_ITS ---
PROCEDURE: US ABDOMEN LIMITED INDICATIONS: Localized swelling, mass and lump, trunk TECHNIQUE: Real-time focused scanning was performed of the abdomen, with image documentation. COMPARISON: None. FINDINGS: Isoechoic subcutaneous soft tissue mass corresponding to the palpable abnormality measuring 1.9 x 2.0 x 1.5 cm. No internal vascularity. IMPRESSION: Possible soft tissue lipoma; however differential would include both benign and malignant etiologies. If indicated, contrast-enhanced soft tissue MRI could be performed for further assessment. Dictated by: Dieter MORE Interpreted: Wilbur Medina MD on 05/02/2022 at 15:58 Transcribed by: JASON on 05/02/2022 at 15:59 Approved by: Efrain Medina M.D. on 05/13/2022 at 8:06
== END ==
PROVIDERS: PCP Family Medicine; Referring Provider Family Medicine; Visit Provider Family Medicine
DX: R22.2 Localized swelling, mass and lump, trunk (principal)
CPT/HCPCS: 76705

== ENCOUNTER → 2022-06-30 16:12 | Outpatient (CLI) | payer MEDICARE, OTHER, SELFPAY ==
[2018-11-16 17:41] VITALS: BMI 29.5
--- NOTE | 2022-06-30 16:17 | DI.RAD.S_ITS ---
PROCEDURE: XR LUMBAR SPINE 2-3V INDICATIONS: BACK PAIN TECHNIQUE: 3 views of the lumbar spine were acquired. COMPARISON: None. FINDINGS: Bones: 5 [id number] vertebrae are present. No significant curvature of the lumbar spine. 9 millimeters anterolisthesis L4 on L5. 5 millimeters retrolisthesis L1 on L2, 3 millimeters retrolisthesis L2 on L3. No vertebral body compression fractures. No suspicious bony lesions. Moderate multilevel disc height loss and endplate spurring and facet degenerative changes. Soft tissues: Overlying bowel gas pattern is normal. Vascular calcifications are present. IMPRESSION: Moderate multilevel degenerative changes of the lumbar spine. No acute lumbar spine fracture visualized. Multilevel listhesis, greatest at L4-L5 measuring up to 9 millimeters. Dictated by: Ryan Jackson M.D. on 06/30/2022 at 17:54 Approved by: Ryan Jackson M.D. on 06/30/2022 at 17:58
== END ==
PROVIDERS: PCP Family Medicine; Referring Provider Family Medicine; Visit Provider Family Medicine
DX: M47.816 Spondylosis without myelopathy or radiculopathy, lumbar region (principal); M43.16 Spondylolisthesis, lumbar region; M79.18 Myalgia, other site
CPT/HCPCS: 72100

== ENCOUNTER → 2022-08-01 09:45 | Outpatient (CLI) | payer MEDICARE, OTHER, SELFPAY ==
[2018-11-16 17:41] VITALS: BMI 29.5
--- NOTE | 2022-08-01 09:47 | DI.MG.S_ITS ---
BILATERAL DIGITAL SCREENING MAMMOGRAM 3D/2D WITH CAD: 08/01/2022 CLINICAL: Routine screening. Personal history of right breast cancer. Comparison is made to exams dated: 07/30/2021 mammogram, 07/24/2020 mammogram, 07/22/2019 mammogram, and 01/26/2019 mammogram - [facility]. Both breasts are heterogeneously dense, which may obscure small masses (category c / 51-75% glandular tissue). Current study was also evaluated with a Computer Aided Detection (CAD) system. There are benign calcifications in both breasts. There also are benign post operative findings in the right breast. No significant masses, calcifications, or other findings are seen in either breast. There has been no significant interval change. IMPRESSION: BENIGN There is no mammographic evidence of malignancy. A 1 year screening mammogram is recommended. This exam was interpreted at Station ID: [id number]. NOTE: For mammograms, a report in lay terms will be sent to the patient. Approximately 15% of breast malignancies will not be visualized mammographically. In the management of a palpable breast mass, a negative mammogram must not discourage biopsy of a clinically suspicious lesion. Electronically Signed By: Hugo lee/nathaniel:08/01/2022 14:44:18 copy to: JUDI VALENZUELA letter sent: Normal Exam ACR BI-RADS Category 2: Benign Finding(s) 3342F
== END ==
PROVIDERS: PCP Family Medicine; Referring Provider Internal Medicine Hematology & Oncology; Visit Provider Internal Medicine Hematology & Oncology
DX: Z12.31 Encounter for screening mammogram for malignant neoplasm of breast (principal); D05.11 Intraductal carcinoma in situ of right breast
CPT/HCPCS: 77063; 77067

== ENCOUNTER → 2023-01-12 11:01 | Outpatient (CLI) | payer MEDICARE, OTHER, SELFPAY ==
[2018-11-16 17:41] VITALS: BMI 29.5
--- NOTE | 2023-01-12 10:23 | DI.DEXA.S_ITS ---
Indication: osteopenia; Referring Provider: CHAD SUBRAMANIAN Study: Bone densitometry was performed. Exam Date: January 12, 2023 Accession number: [id number] Bone Density: Region BMD T-score Z-score Classification AP Spine(L1-L4) 1.019 -0.3 2.5 Normal Femoral Neck (Left) 0.613 -2.1 0.3 Osteopenia Total Hip (Left) 0.760 -1.5 0.7 Osteopenia Femoral Neck (Right) 0.725 -1.1 1.3 Osteopenia Total Hip (Right) 0.794 -1.2 1.0 Osteopenia Total Hip Mean 0.777 -1.4 0.9 Osteopenia Total Forearm (Left) 0.510 -1.3 2.0 Osteopenia 1/3 Forearm (Left) 0.610 -1.4 2.0 Osteopenia UD Forearm (Left) 0.367 -1.3 1.1 Osteopenia World Health Organization criteria for BMD impression classify patients as: Normal (T-score at or above -1.0), Osteopenia (T-score between -1.0 and -2.5), or Osteoporosis (T-score at or below -2.5). 10-year Fracture Risk(1): Major Osteoporotic Fracture 16% Hip Fracture 4.8% Reported Risk Factors: [place] (), Neck BMD=0.613, BMI=29.1 (1) FRAX(R) Version 3.08. Fracture probability calculated for an untreated patient. Fracture probability may be lower if the patient has received treatment. Previous Exams: -- Region Exam Age BMD T-score BMD Change BMD Change Date g/cm2 vs Baseline vs Previous -- AP Spine (L1-L4) 01/12/2023 82 1.019 -0.3 0.045 (4.7%)# 0.045 (4.7%)# 01/11/2021 80 0.974 -0.7 Total Hip(Left) 01/12/2023 82 0.760 -1.5 -0.042 (-5.2%)# -0.042 (-5.2%)# 01/11/2021 80 0.801 -1.2 Total Hip(Right) 01/12/2023 82 0.794 -1.2 -0.019 (-2.4%)# -0.019 (-2.4%)# 01/11/2021 80 0.814 -1.1 -- *Denotes significance at 95% confidence level, LSC for AP Spine = 0.022 g/cm2, LSC for Total Hip = 0.027 g/cm2 # Denotes dissimilar scan types or analysis methods Impression: The patient has low bone mass, based on the Left Femoral Neck T-score. The patient has an estimated ten-year risk of hip fracture of 4.8% and an estimated ten-year risk of major fracture of 16%, based on the WHO FRAX algorithm. No significant bone loss was observed. Discussion: BONE DENSITY IS LOW AT ONE OR MORE SKELETAL SITES. THE PATIENT'S BMD AND CLINICAL RISK FACTORS CONTRIBUTE TO THIS PATIENT'S INCREASED RISK OF FRACTURE. This patient's lowest T-score is low at one or more skeletal sites. It meets the World Health Organization's (WHO) criteria for ?low bone mass? (T-score between -1.0 and -2.5). The patient's 10-year risk of hip fracture as calculated by FRAX exceeds the threshold where pharmacological therapy is recommended by the National Osteoporosis Foundation (NOF). However, all treatment decisions require clinical judgment and consideration of individual patient factors, including patient preferences, comorbidities, previous drug use, risk factors not captured in the FRAX model (e.g., frailty, falls, vitamin D deficiency, increased bone turnover, interval significant decline in bone density) and possible under or overestimation of fracture risk by FRAX. The patient should follow a healthful lifestyle (good nutrition with adequate calcium and vitamin D, and appropriate weight-bearing exercise). Follow-Up: Consider a repeat BMD and Vertebral Fracture Assessment (VFA) exam in 2 years or sooner if medically necessary, to reassess this patient's status. Reported by: Stone ESCALANTE M.D. on 01/12/2023 10:33:00 AM.
== END ==
PROVIDERS: PCP Family Medicine; Referring Provider Internal Medicine Hematology & Oncology; Visit Provider Internal Medicine Hematology & Oncology
DX: M85.852 Other specified disorders of bone density and structure, left thigh (principal); D05.11 Intraductal carcinoma in situ of right breast; Z78.0 Asymptomatic menopausal state; Z90.710 Acquired absence of both cervix and uterus; Z92.23 Personal history of estrogen therapy
CPT/HCPCS: 77080; 77081

== ENCOUNTER → 2023-07-10 11:58 | Outpatient (CLI) | payer MEDICARE, OTHER, SELFPAY ==
[2018-11-16 17:41] VITALS: BMI 29.5
--- NOTE | 2023-07-10 | DI.RAD.S_ITS ---
PROCEDURE: XR FACIAL BONES <3V INDICATIONS: facial trauma, fall TECHNIQUE: 4 views of the facial bones were acquired. COMPARISON: None. FINDINGS: Sinuses: Visualized sinuses demonstrate no air-fluid levels or mucosal thickening. Bones: No fractures. No suspicious bony lesions. Orbital rims and zygomatic arches appear intact. Soft tissues: No suspicious soft tissue densities. IMPRESSION: No definite radiographic abnormality. If pain persists with conservative management, consider cross sectional imaging such as CT or MRI for further assessment. Dictated by: Dieter Beltran [facility] Interpreted: Oli Gibson MD on 07/10/2023 at 12:31 Transcribed by: JAMILA on 07/10/2023 at 12:31 Approved by: Oli Gibson M.D. on 07/10/2023 at 15:58
== END ==
PROVIDERS: PCP Family Medicine; Referring Provider Family Medicine; Visit Provider Family Medicine
DX: S09.93XA Unspecified injury of face, initial encounter (principal); W19.XXXA Unspecified fall, initial encounter
CPT/HCPCS: 70140

== ENCOUNTER → 2023-08-03 11:03 | Outpatient (CLI) | payer MEDICARE, OTHER, SELFPAY ==
[2018-11-16 17:41] VITALS: BMI 29.5
--- NOTE | 2023-08-03 11:04 | DI.MG.S_ITS ---
BILATERAL DIGITAL SCREENING MAMMOGRAM 3D/2D WITH CAD: 08/03/2023 CLINICAL: Routine screening. Breast cancer. Comparison is made to exams dated: 08/03/2023 mammogram, 08/01/2022 mammogram, and 07/30/2021 mammogram - [facility]. Both breasts are heterogeneously dense, which may obscure small masses (category c / 51-75% glandular tissue). Current study was also evaluated with a Computer Aided Detection (CAD) system. There are benign calcifications in both breasts. There also are benign post operative findings in the right breast. No significant masses, calcifications, or other findings are seen in either breast. There has been no significant interval change. IMPRESSION: BENIGN There is no mammographic evidence of malignancy. A 1 year screening mammogram is recommended. This exam was interpreted at Station ID: [id number]. NOTE: For mammograms, a report in lay terms will be sent to the patient. Approximately 15% of breast malignancies will not be visualized mammographically. In the management of a palpable breast mass, a negative mammogram must not discourage biopsy of a clinically suspicious lesion. Electronically Signed By: Ryan corona/nathaniel:08/03/2023 12:26:52 copy to: JUDI VALENZUELA letter sent: Normal Exam ACR BI-RADS Category 2: Benign Finding(s) 3342F
== END ==
PROVIDERS: PCP Family Medicine; Referring Provider Internal Medicine Hematology & Oncology; Visit Provider Internal Medicine Hematology & Oncology
DX: Z12.31 Encounter for screening mammogram for malignant neoplasm of breast (principal); D05.11 Intraductal carcinoma in situ of right breast
CPT/HCPCS: 77063; 77067

== ENCOUNTER → 2023-10-15 11:29 | Outpatient (CLI) | payer MEDICARE, OTHER, SELFPAY ==
[2018-11-16 17:41] VITALS: BMI 29.5
== END ==
PROVIDERS: Family Provider Family Medicine; PCP Family Medicine; Referring Provider Family Medicine; Visit Provider Family Medicine
DX: G56.01 Carpal tunnel syndrome, right upper limb (principal)
CPT/HCPCS: 95886; 95910

== ENCOUNTER → 2023-11-24 16:10 | Outpatient (CLI) | payer MEDICARE, OTHER, SELFPAY ==
[2018-11-16 17:41] VITALS: BMI 29.5
--- NOTE | 2023-11-24 16:14 | DI.RAD.S_ITS ---
PROCEDURE: XR KNEE RT 3V INDICATIONS: KNEE PAIN TECHNIQUE: 3 views of the knee were acquired. COMPARISON: [facility], [place], XR KNEE RT 1TO2V, 11/16/2018, 16:11. [facility], [place], KNEE 3V RIGHT, 08/19/2014, 11:33. FINDINGS: Bones: Postsurgical changes again seen from total knee arthroplasty with hardware components stable positions. The subtle lucency is seen along the the margins of the femoral and tibial components that could indicate loosening. Soft tissues: No joint effusion. No suspicious soft tissue calcifications. IMPRESSION: Postsurgical changes again seen in total knee arthroplasty. Subtle lucencies are seen adjacent to the femoral and tibial components, and mild loosening is not excluded. Approved by: Ryan Kelly M.D. on 11/24/2023 at 21:38
--- NOTE | 2023-11-24 16:14 | DI.RAD.S_ITS ---
PROCEDURE: XR KNEE LT 3V INDICATIONS: KNEE PAIN TECHNIQUE: 3 views of the knee were acquired. COMPARISON: None. FINDINGS: Bones: No acute fractures or dislocations. No suspicious bony lesions. Moderate size tricompartmental marginal osteophytes are present. There is tricompartmental joint space narrowing, which appears more prominent within the femorotibial joint on the lateral view likely least moderate if not severe. Soft tissues: No joint effusion. Chondrocalcinosis is noted particularly within the lateral femorotibial compartment. Soft tissue calcifications could obscure an intra-articular loose body IMPRESSION: 1. 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 2. Chondrocalcinosis. Approved by: Ryan Kelly M.D. on 11/24/2023 at 21:26
== END ==
PROVIDERS: Family Provider Family Medicine; PCP Family Medicine; Referring Provider Family Medicine; Visit Provider Family Medicine
DX: M17.12 Unilateral primary osteoarthritis, left knee (principal); M11.262 Other chondrocalcinosis, left knee; M25.561 Pain in right knee; M25.562 Pain in left knee; Z96.651 Presence of right artificial knee joint
CPT/HCPCS: 73562

== ENCOUNTER → 2023-12-02 11:50 | Outpatient (CLI) | payer MEDICARE, OTHER, SELFPAY ==
[2018-11-16 17:41] VITALS: BMI 29.5
--- NOTE | 2023-12-02 11:52 | DI.RAD.S_ITS ---
Bone Density Report Name: SHU JOHNSON Age: 83 Sex: Female Ethnicity: White Date of : 1940 Indication: osteopenia; Referring Provider: JUDI VALENZUELA Study: Bone densitometry was performed. Exam Date: December 02, 2023 Accession number: [id number] Bone Density: Region BMD T-score Z-score Classification AP Spine(L1-L4) 0.983 -0.6 2.2 Normal Femoral Neck (Left) 0.604 -2.2 0.2 Osteopenia Total Hip (Left) 0.751 -1.6 0.7 Osteopenia Femoral Neck (Right) 0.698 -1.4 1.1 Osteopenia Total Hip (Right) 0.802 -1.2 1.1 Osteopenia Total Hip Mean 0.777 -1.4 0.9 Osteopenia World Health Organization criteria for BMD impression classify patients as: Normal (T-score at or above -1.0), Osteopenia (T-score between -1.0 and -2.5), or Osteoporosis (T-score at or below -2.5). 10-year Fracture Risk(1): Major Osteoporotic Fracture 16% Hip Fracture 5.2% Reported Risk Factors: [place] (), Neck BMD=0.604, BMI=29.1 (1) FRAX(R) Version 3.08. Fracture probability calculated for an untreated patient. Fracture probability may be lower if the patient has received treatment. Previous Exams: -- Region Exam Age BMD T-score BMD Change BMD Change Date g/cm2 vs Baseline vs Previous -- AP Spine (L1-L4) 12/02/2023 83 0.983 -0.6 -0.057 (-5.5%)# -0.036 (-3.5%)* 01/12/2023 82 1.019 -0.3 -0.021 (-2.0%)# 0.045 (4.7%)# 01/11/2021 80 0.974 -0.7 -0.067 (-6.4%)* -0.067 (-6.4%)* 12/08/2018 78 1.040 -0.1 Total Hip(Left) 12/02/2023 83 0.751 -1.6 -0.027 (-3.5%)# -0.008 (-1.1%) 01/12/2023 82 0.760 -1.5 -0.019 (-2.4%)# -0.042 (-5.2%)# 01/11/2021 80 0.801 -1.2 0.022 (2.9%) 0.022 (2.9%) 12/08/2018 78 0.779 -1.3 Total Hip(Right) 12/02/2023 83 0.802 -1.2 0.003 (0.3%)# 0.007 (0.9%) 01/12/2023 82 0.794 -1.2 -0.005 (-0.6%)# -0.019 (-2.4%)# 01/11/2021 80 0.814 -1.1 0.015 (1.8%) 0.015 (1.8%) 12/08/2018 78 0.799 -1.2 -- *Denotes significance at 95% confidence level, LSC for AP Spine = 0.022 g/cm2, LSC for Total Hip = 0.027 g/cm2 # Denotes dissimilar scan types or analysis methods Impression: The patient has low bone mass, based on the Left Femoral Neck T-score. The patient has an estimated ten-year risk of hip fracture of 5.2% and an estimated ten-year risk of major fracture of 16%, based on the WHO FRAX algorithm. The BMD for the AP Spine (L1-L4) decreased, changing by -3.5% since the last DXA exam. Discussion: BONE DENSITY IS LOW AT ONE OR MORE SKELETAL SITES. THE PATIENT'S BMD AND CLINICAL RISK FACTORS CONTRIBUTE TO THIS PATIENT'S INCREASED RISK OF FRACTURE. This patient's lowest T-score is low at one or more skeletal sites. It meets the World Health Organization's (WHO) criteria for low bone mass (T-score between -1.0 and -2.5). The patient's 10-year risk of hip fracture as calculated by FRAX exceeds the threshold where pharmacological therapy is recommended by the National Osteoporosis Foundation (NOF). However, all treatment decisions require clinical judgment and consideration of individual patient factors, including patient preferences, comorbidities, previous drug use, risk factors not captured in the FRAX model (e.g., frailty, falls, vitamin D deficiency, increased bone turnover, interval significant decline in bone density) and possible under or overestimation of fracture risk by FRAX. The patient should follow a healthful lifestyle (good nutrition with adequate calcium and vitamin D, and appropriate weight-bearing exercise). Follow-Up: Consider a repeat BMD and Vertebral Fracture Assessment (VFA) exam in 2 years or sooner if medically necessary, to reassess this patient's status. Reported by: [facility] SHARMA M.D. on 12/02/2023 12:10:00 PM.
== END ==
LOC: RAD 11:50
PROVIDERS: Family Provider Family Medicine; PCP Family Medicine; Referring Provider Family Medicine; Visit Provider Family Medicine
DX: M85.89 Other specified disorders of bone density and structure, multiple sites (principal)
CPT/HCPCS: 77080

== ENCOUNTER → 2023-12-24 09:06 | Outpatient (CLI) | payer MEDICARE, OTHER, SELFPAY ==
[2018-11-16 17:41] VITALS: BMI 29.5
--- NOTE | 2023-12-24 | DI.ECHO.S_ITS ---
[facility] +---------+ : : [address] : : : : [id number] : : : : Phone: [phone]---------+ Echocardiogram Report + + :Name: SHU JOHNSON Study Date: 12/24/2023 Height: 59 in : :[facility] ReadingLocation: Weight: 145 lb : : Gender: Female BSA: 1.6 m2 : :: 1940 Age: 83 yrs BP: 131/80 mmHg: :Reason For Study: PALPITATIONS : :Ordering Physician: BIANCA, : :JUDI Performed By: Sheridan Billingsley : :Referring: JUDI VALENZUELA : + + Interpretation Summary The ejection fraction is estimated to be 55-60%. Diastolic function could not be accurately assessed due to contradictory data. The right ventricle is normal in size and function. There is mild biatrial enlargement. Possible small PFO seen by color Doppler in the subcostal view. There is mild tricuspid regurgitation. The right ventricular systolic pressure is estimated to be at least 24 mmHg based on an estimated right atrial pressure of 3 mm Hg. There is a trivial pericardial effusion noted. Procedure: A two-dimensional transthoracic echocardiogram with color flow and Doppler was performed. The study quality was technically adequate. Comparison is made with the echocardiogram of 06/22/2013. The patient was in sinus rhythm with heart rates between 63-77 bpm during the exam. Left Ventricle: The left ventricle is normal in size and wall thickness. The ejection fraction is estimated to be 55-60%. Diastolic function could not be accurately assessed due to contradictory data. Right Ventricle: The right ventricle is normal in size and function. Atria: There is mild biatrial enlargement. Possible small PFO seen by color Doppler in the subcostal view. Mitral Valve: The mitral valve is normal in structure and function. There is trace mitral regurgitation. Aortic Valve: The aortic valve is trileaflet. The aortic valve opens well. There is no aortic valve stenosis. No aortic regurgitation is present. Tricuspid Valve: The tricuspid valve is normal in structure and function. There is mild tricuspid regurgitation. The right ventricular systolic pressure is estimated to be at least 24 mmHg based on an estimated right atrial pressure of 3 mm Hg. Pulmonic Valve: The pulmonic valve leaflets are thin and pliable; valve motion is normal. There is mild pulmonic regurgitation. Great Vessels: The aortic root is normal size. The dimensions of the ascending aorta are normal. The IVC is of normal diameter and collapses greater than 50% with a sniff. This suggests a low right atrial pressure of 3 mm Hg. Pericardium/ Pleura There is a trivial pericardial effusion noted. There is no pleural effusion. MMode/2D Measurements & Calculations LVIDd: 4.7 cm LVOT diam: 2.2 cm LVIDs: 3.0 cm Ao root diam: 2.9 cm FS: 37.5 % asc Aorta Diam: 3.8 cm IVSd: 0.74 cm Ao Arch Diam (Prox Trans): 2.7 cm LVPWd: 1.00 cm LV hensley. diameter/BSA (cm/m^2): 2.9 LV sys. diameter/BSA (cm/m^2): 1.8 LA A2 area: 20.4 cm2 RA long axis: 5.3 cm LA A4 area: 18.5 cm2 RA area: 17.7 cm2 LA length (vol): 5.2 cm RA vol: 50.5 ml LA vol: 61.8 ml RA : 31.4 ml/m2 LA vol index: 38.4 ml/m2 IVC diam: 1.6 cm RVD1 (basal): 3.4 cm RVD2 (mid): 3.1 cm TAPSE: 2.6 cm Doppler Measurements & Calculations Ao V2 max: 139.1 cm/sec LVOT Max Nadeem: 87.8 cm/sec Ao V2 mean: 104.3 cm/sec LV V1 max P.1 mmHg Ao max P.7 mmHg LV V1 VTI: 18.9 cm Ao mean P.7 mmHg PINKY(I,D): 2.2 cm2 Ao V2 VTI: 31.4 cm PINKY(V,D): 2.3 cm2 sev ratio: 0.60 PINKY indexed to BSA (cm^2/m^2): 1.4 MV E max nadeem: 70.8 cm/sec TR max nadeem: 230.5 cm/sec MV A max nadeem: 98.3 cm/sec TR max P.2 mmHg MV E/A: 0.72 PA V2 max: 78.9 cm/sec Med Peak E' Nadeem: 5.9 cm/sec PA V2 mean: 55.5 cm/sec E/E' med: 12.1 PA mean P.3 mmHg Lat Peak E' Nadeem: 5.3 cm/sec PA pr(Accel): 39.6 mmHg E/E' lat: 13.4 E/e' average: 12.8 MV dec time: 0.23 sec SV(LVOT): 69.8 ml Reading Physician:11:33 AM
== END ==
PROVIDERS: Family Provider Family Medicine; PCP Family Medicine; Referring Provider Family Medicine; Visit Provider Family Medicine
DX: I37.1 Nonrheumatic pulmonary valve insufficiency (principal); I07.1 Rheumatic tricuspid insufficiency; I10 Essential (primary) hypertension; E87.6 Hypokalemia; E83.52 Hypercalcemia; R00.2 Palpitations
CPT/HCPCS: 93306

== ENCOUNTER → 2024-08-05 14:45 | Outpatient (CLI) | payer MEDICARE, OTHER, SELFPAY ==
[2018-11-16 17:41] VITALS: BMI 29.5
--- NOTE | 2024-08-05 14:46 | DI.MG.S_ITS ---
BILATERAL DIGITAL SCREENING MAMMOGRAM 3D/2D WITH CAD: 08/05/2024 CLINICAL: Routine screening. Personal history of right breast cancer. Comparison is made to exams dated: 08/03/2023 mammogram, 08/03/2023 mammogram, 08/01/2022 mammogram, and 07/30/2021 mammogram - [facility]. The breasts are heterogeneously dense, which may obscure small masses (category c / 51-75% glandular tissue). Current study was also evaluated with a Computer Aided Detection (CAD) system. There are benign calcifications in both breasts. There also are benign post operative findings in the right breast. No significant masses, calcifications, or other findings are seen in either breast. There has been no significant interval change. IMPRESSION: BENIGN There is no mammographic evidence of malignancy. A 1 year screening mammogram is recommended. This exam was interpreted at Station ID: [id number]. NOTE: For mammograms, a report in lay terms will be sent to the patient. Approximately 15% of breast malignancies will not be visualized mammographically. In the management of a palpable breast mass, a negative mammogram must not discourage biopsy of a clinically suspicious lesion. Electronically Signed By: Jose Alejandro curtis/nathaniel:08/05/2024 16:28:45 copy to: JUDI VALENZUELA letter sent: Normal Exam ACR BI-RADS Category 2: Benign
== END ==
PROVIDERS: Family Provider Family Medicine; PCP Family Medicine; Referring Provider Family Medicine; Visit Provider Family Medicine
DX: Z12.31 Encounter for screening mammogram for malignant neoplasm of breast (principal); Z85.3 Personal history of malignant neoplasm of breast; R92.333 Mammographic heterogeneous density, bilateral breasts
CPT/HCPCS: 77063; 77067

== ENCOUNTER → 2024-08-12 10:06 | Outpatient (CLI) | payer MEDICARE, OTHER, SELFPAY ==
[2018-11-16 17:41] VITALS: BMI 29.5
--- NOTE | 2024-08-12 19:29 | DI.NM.S_ITS ---
DATE OF SERVICE: 08/12/2024 EXERCISE PERFUSION STUDY INDICATION: Chest pain with underlying hypertension, hyperlipidemia, SVT. RADIOPHARMACEUTICAL: 25.9 millicurie technetium-99m Myoview IV was injected at stress and 12.1 millicurie technetium-99m Myoview IV was injected at rest. CARDIAC STRESS: The patient underwent exercise perfusion study under the supervision of an attending staff. The patient initially walked on Hoang protocol for about 3 minutes and then with manual adjustments one more additional minutes. Achieved maximum heart rate of 136, which was 100% of target heart rate. 4.7 METS of workload of workload. ANGIE positive 31%. Resting blood pressure 118/52 and peak blood pressure 152/90 mmHg. Baseline rhythm was sinus. During stress, no convincing ischemic changes seen. Occasional PVCs. In recovery, patient has intermittent PACs. No obvious AFib or ventricular tachycardia. Moderate shortness of breath. No chest pain. RAW DATA: There is adequate myocardial uptake. Increased subdiaphragmatic activity. GATED STUDY: Resting LV ejection fraction 68% and stress LV ejection fraction 68% without any significant wall motion abnormalities. Resting end-diastolic volume 85 mL. TID ratio 0.82, which is within normal limits. Lung/heart ratio 0.42, which is within normal limits. MYOCARDIAL PERFUSION SCAN: Stress supine, resting supine, and stress prone images were compared to each other. There is a normal myocardial perfusion. CONCLUSION: This is a normal myocardial perfusion study. Diminished exercise tolerance. Normal hemodynamic response. No ischemic EKG changes. Occasional PVCs and intermittent PACs. No obvious AFib or ventricular tachycardia. No chest pain. The patient felt shortness of breath. Preserved LV function. Overall, low-risk myocardial perfusion scan. Razia Livingston - EVELYN/juan/GEORGE doc#: [id number]/job#: [id number] dd: 08/12/2024 17:07:00 dt: 08/12/2024 19:19:00 DICTATING MD/COPIES TO: Josephine Zuniga MD COPIES MNE: IRVIN;
== END ==
LOC: NUCM 10:07
PROVIDERS: Family Provider Family Medicine; PCP Family Medicine; Referring Provider Family Medicine; Visit Provider Family Medicine
DX: I47.10 Supraventricular tachycardia, unspecified (principal); R07.9 Chest pain, unspecified; I10 Essential (primary) hypertension; E78.00 Pure hypercholesterolemia, unspecified
CPT/HCPCS: 78452; 93017; A9502

== ENCOUNTER → 2025-01-12 10:29 | Outpatient (CLI) | payer MEDICARE, OTHER, SELFPAY ==
[2018-11-16 17:41] VITALS: BMI 29.5
--- NOTE | 2025-01-12 10:33 | DI.US.S_ITS ---
PROCEDURE: US CAROTID DOPPLER BI INDICATIONS: CHEST PAIN / REPORTED CAROTID STENOSIS TECHNIQUE: Color and pulse Doppler interrogation was performed of both carotid systems, with image documentation and velocity measurements. COMPARISON: None. FINDINGS: Stenosis calculations are based on SRU (Society of Radiologists in Ultras[employer]) criteria. Right side: Brachial blood pressure: 119/71 mm Hg. Common carotid artery peak systolic velocity: 62 cm/sec. Internal carotid artery peak systolic velocity: 67 cm/sec. Internal carotid artery end diastolic velocity: 22 cm/sec. External carotid artery peak systolic velocity: 94 cm/sec. ICA/CCA peak systolic ratio: 1.1. Simon scale imaging description: Mild plaque. Percent internal carotid artery stenosis: Less than 50% stenosis. Vertebral artery: Flow direction is antegrade. Left side: Brachial blood pressure: 107/62 mm Hg. Common carotid artery peak systolic velocity: 59 cm/sec. Internal carotid artery peak systolic velocity: 68 cm/sec. Internal carotid artery end diastolic velocity: 16 cm/sec. External carotid artery peak systolic velocity: 75 cm/sec. ICA/CCA peak systolic ratio: 1.1. Simon scale imaging description: No significant plaque. Percent internal carotid artery stenosis: Less than 50% stenosis. Vertebral artery: Flow direction is antegrade. IMPRESSION: 1. Right ICA: Less than 50 % stenosis. 2. Left ICA: Less than 50 % stenosis. 3. Antegrade flow in the bilateral vertebral arteries. Dictated by: Hugo Aj M.D. on 01/12/2025 at 17:12 Approved by: Hugo Aj M.D. on 01/12/2025 at 17:14
== END ==
PROVIDERS: Family Provider Family Medicine; PCP Family Medicine; Referring Provider Internal Medicine Cardiovascular Disease; Visit Provider Internal Medicine Cardiovascular Disease
DX: R07.9 Chest pain, unspecified (principal); I65.23 Occlusion and stenosis of bilateral carotid arteries
CPT/HCPCS: 93880

== ENCOUNTER → 2025-08-10 14:21 | Outpatient (CLI) | payer MEDICARE, OTHER, SELFPAY ==
[2018-11-16 17:41] VITALS: BMI 29.5
--- NOTE | 2025-08-10 14:22 | DI.MG.S_ITS ---
MM screening mammo BI: 08/10/2025. BI-RADS: 2 CLINICAL: 85-year old female for bilateral screening mammogram. No Tyrer-Cuzick risk score calculation due to the patient's personal history of breast cancer. Patient reports a history of right breast carcinoma diagnosed at age 77. Status-post right lumpectomy with radiation therapy and hormonal therapy. No first-degree family history of breast cancer. The patient had a prior right breast biopsy. PRIOR EXAMS 08/05/2024, 08/03/2023, 08/01/2022, 07/30/2021. MAMMOGRAPHY TECHNIQUE: 2D and 3D (tomosynthesis) digital mammographic views obtained, with additional images as needed for full coverage. Current study was also evaluated with a Computer Aided Detection (CAD) system. DENSITY C. The breasts are heterogeneously dense, which may obscure small masses. MAMMOGRAPHY FINDINGS Right: Surgical clips present on the right. Benign-appearing calcifications and post-surgical changes noted on the right. There are no suspicious masses, calcifications, or other findings in the breast. Left: Benign-appearing calcifications noted on the left. There are no suspicious masses, calcifications, or other findings in the breast. IMPRESSION: * No evidence of malignancy with benign findings. RECOMMENDATIONS Bilateral * Annual screening mammography. OVERALL ASSESSMENT CATEGORY BI-RADS-2: Benign. The [employer] recommends annual screening mammography beginning at age 40 for women with average risk of breast cancer. ELECTRONICALLY SIGNED: Jose Alejandro Rodriguez M.D. on 08/11/2025 at 07:32:00 AM PT Interpreting Station ID: [id number]
== END ==
LOC: MAMMO 14:21
PROVIDERS: Family Provider Family Medicine; PCP Family Medicine; Referring Provider Family Medicine; Visit Provider Family Medicine
DX: Z12.31 Encounter for screening mammogram for malignant neoplasm of breast (principal); R92.333 Mammographic heterogeneous density, bilateral breasts; R92.1 Mammographic calcification found on diagnostic imaging of breast; Z85.3 Personal history of malignant neoplasm of breast
CPT/HCPCS: 77063; 77067